=== PATIENT | male | born 1950 | race Caucasian/White ===

== ENCOUNTER 2019-04-24 06:47 | Inpatient (IN) | payer OTHER, SELFPAY ==
[2019-04-10 09:57] VITALS: BMI 43.0
[2019-04-24] VITALS (15 sets, daily range): BP systolic 92–145; BP diastolic 51–87; PULSE 64–75; RESP 14–24; TEMP 35.6–36.9; O2SAT 95–98; BMI 42.5
--- NOTE | 2019-04-24 | DI.RAD.S_ITS ---
PROCEDURE: XR KNEE LT 1TO2V INDICATIONS: POST OP TECHNIQUE: 2 view(s) of the knee acquired. COMPARISON: SNO Outside Film, RG, KNEE 3VW (LT), 03/10/2017, 16:32. FINDINGS: Bones: Patient is status post knee joint arthroplasty. Hardware components are in expected positions. Visualized bony structures are intact. Soft tissues: Overlying postoperative changes are noted. IMPRESSION: Expected postsurgical change for left knee arthroplasty. Dictated by: Michelle Guerra MD, PhD on 04/24/2019 at 10:29 Approved by: Michelle Guerra MD, PhD on 04/24/2019 at 10:29
[2019-04-24] MEDS: CELECOXIB 200 MG CAPSULE PO (06:56)
[2019-04-24] MEDS: ACETAMINOPHEN 325 MG TABLET 975 MG PO ×3 (06:56→20:12)
[2019-04-24] MEDS: PREGABALIN 75 MG CAPSULE PO (06:56)
--- NOTE | 2019-04-24 07:29 | PM.PREOP ---
Pre-operative Note Interval Note History & Physical reviewed/Exam performed by Physician: Yes Changes to H&P: No
--- NOTE | 2019-04-24 07:41 | P.OP_ITS ---
Operative Date/Time/Diagnoses Date of procedure: 04/24/19 Time of procedure: 09:36 Pre-op diagnosis: Left knee osteoarthritis Post-op diagnosis: same Procedure & Clinicians Procedure: Left total knee arthroplasty Same procedure as scheduled: Yes Indications: The patient presents today for total knee arthroplasty after failure of conservative treatment. The nature of the procedure including the risks and benefits, alternatives, postoperative course and expected outcome were discussed and all questions answered. Consent was obtained. Operative site confirmed and marked. Surgeon: Lloyd Seymour Shipping Clerk/Admin: Eamon Bateman Anesthesia Type: General, Spinal, Peripheral nerve block and Local Operative Notes Findings: Severe osteoarthritis with varus alignment. Closure Type: primary Specimen(s): none sent Prosthetic devices, grafts, tissues, transplants, or devices: [employer] BCS: [xx] femoral component, [xx] tibial component, [xx] mm BCS polyethylene tray and [xx] mm round patella Applied: implant(s) Estimated Blood Loss (mL): 20 Blood products transfused: none Tourniquet time (min): 60 Procedure in detail: The patient was taken to the operative suite and placed under general and spinal anesthesia with an adductor nerve block. The patient was given prophylactic antibiotics prior to surgery. The patient was also given tranexamic acid, 1 g, just prior to surgery for postoperative hemostasis. The lateral knee was prepped and the joint injected with 20 mL of 1% Lidocaine with epinephrine. The knee was then prepped and draped in usual sterile fashion. The leg was exsanguinated with an Esmarch dressing and the tourniquet raised to 300 torr. A 15 cm anterior incision was made. Next a medial trivector arthrotomy was made. The extensor mechanism was marked to ensure accurate repair. Initial exposing dissection was carried out medially and laterally. The knee was then extended and the patellar thickness was measured and a cut made removing approximately 9 mm of bone. The patella was then sized and drilled. Some excess lateral bone was excised and the patellofemoral ligament released. The knee was then flexed and the intramedullary femoral guide mitch placed. The distal femoral cut was made in 6 ? of valgus at the +2 position. The femoral size was measured and the appropriate cutting block was then placed and the anterior, posterior and chamfer cuts made. The extra medullary tibial alignment mitch was then placed along the anatomic axis of the tibia approximating the normal slope. The guide was set to remove approximately 10 mm from the less affected lateral side. The proximal tibial cut was then made with an oscillating saw. All meniscus and bony debris was then removed. Flexion extension gaps were checked. No specific balancing was required other than routine removal of osteophytes. The soft tissues were then injected with a combination of 20 mL of half percent Marcaine with epinephrine and 20 mL of Exparel. The trial components were then placed. The knee went into full extension and flexion beyond 120?. There was excellent medial- lateral balance throughout motion with just slight increased lateral laxity in flexion and extension. Patellar tracking was excellent. The trial components were removed and the knee was cleansed with Pulsavac irrigation and dried. The final components were cemented in with high viscosity vacuum mixed bone cement with antibiotics. The knee was held in extension and the patellar clamp until the cement had adequately cured. The knee was ir rigated and inspected for any further debris. The knee was then irrigated with dilute Betadine solution. The extensor mechanism was closed with 5 interrupted #1 Vicryl sutures in 90 degrees of flexion. The joint was then injected with a combination of 1 g of tranexamic acid and 20 mL of quarter percent Marcaine with epinephrine. The subcutaneous tissue was closed with 2-0 Vicryl. The skin was closed with heriberto and surgical adhesive. An Aquacell dressing and Mathew wrap were then applied. The patient tolerated the procedure well and was returned to recovery room in good condition. Complications: none Post-operative Condition: stable Disposition: PACU Plan for aftercare: [facility] protocol for total knee arthroplasty.
[2019-04-24] MEDS: MIDAZOLAM 2 MG/2 ML VIAL IV (07:42)
[2019-04-24] MEDS: fentaNYL 100 MCG/2 ML INJ 50 MCG IV (07:44)
[2019-04-24] MEDS: LACTATED RINGERS 1,000 ML 42 ML IV ×2 (07:56→09:21)
--- NOTE | 2019-04-24 07:59 | SUR.PREOP ---
Pt set up for block, medicated. Dr. Lundberg unable to complete block.
[2019-04-24] MEDS: CEFAZOLIN 2 GM/100 ML FROZ.PIGGY IV (08:00)
--- NOTE | 2019-04-24 08:39 | SUR.OPER ---
Supine on padded OR bed. Pillow under head, arms secured on padded armboards <90 degree abduction. Safety belt across torso. Non-operative leg secured with tape over blanket over lower leg. Operative leg secured in Alex positioner. Foam padded brace at thigh of operative leg.
[2019-04-24] MEDS: BUPIVACAINE 0.25% W/ EPI (PF) 20 ML, TRANEXAMIC ACID 1,000 MG, SODIUM CHLORIDE 0.9% 10 ML INJ (08:43)
[2019-04-24] MEDS: TRANEXAMIC ACID 1,000 MG VIAL 1000 MG INJ (08:45)
[2019-04-24] MEDS: BUPIVACAINE LIPOSOME 266 MG/20 ML VIAL INJ (08:47)
[2019-04-24] MEDS: BUPIVACAINE 0.25% W/ EPI 30 ML VIAL 60 ML INJ (08:48)
[2019-04-24] MEDS: SODIUM CHLORIDE IRRIG SOLUTION 250 ML, POVIDONE-IODINE SPONGE STICKS 1 APPLIC IRR (09:26)
[2019-04-24] MEDS: LACTATED RINGERS 1,000 ML 125 ML IV ×2 (10:45→20:12)
[2019-04-24] MEDS: SODIUM CHLORIDE 0.9% FLUSH 10 ML IV ×2 (10:45→11:48)
--- NOTE | 2019-04-24 11:16 | PC.NURSE ---
Addendum entered by Valarie Hernandez R.N. 04/24/19 16:06: Spoke with ELIEZER Thomas at 1520, cancelled discharge order as pt not ready to be discharged today. PT saw pt and not ready per PT, needs to do stair training and pt had Epidural/spinal during surgery, little void of 50mls this afternoon. Original Note: Day Shift- Report rec'd from MICHAEL Edwards in PACU at 1010. Pt arrived to unit at 1018 via bed into room 217, personal belongings brought into room, Pt's Dara also at bedside. Pt oriented to post op routines, call light, pain management plan, Epidural/Spinal precautions, sensation to void, urinal at bedside. LEft knee aquacel dressing CDI with dean wrap covering, PPP, pt states has numbness and tingling, aching to left knee incision 1-2/10. Pt able to perform ankle pump exercises and slightly bend at knee. Instructed a pillow may be placed under his leg but below his knee. On continuous O2 monitoring, O2 sat 96% on RA. Respirations are easy and regular. Bed alarm on, call light within reach.
[2019-04-24] MEDS: HYDROMORPHONE 0.5 MG INJ IV (11:44)
[2019-04-24] MEDS: OXYCODONE IR 5 MG TABLET 10 MG PO ×3 (12:33→20:13)
--- NOTE | 2019-04-24 15:27 | PT.IIE ---
Current Diagnoses Unilateral primary osteoarthritis, left knee (04/24/19) Surgery Performed Operation Date: 04/24/19 07:45 Actual Procedures p Total Knee Arthroplasty(Left) - Lloyd Seymour MD Surgical History (Last Updated 04/10/19 @ 10:16 by Dara Steele RN) Hx of bilateral cataract extraction (Acute ~01/2019) Hx of tonsillectomy (Acute) S/P lumbar fusion (Acute) Medical History (Last Updated 04/24/19 @ 06:48 by William Buck) Anemia (Acute) Arthritis (Acute) Bilateral knee pain (Acute) BPH (benign prostatic hyperplasia) (Acute) Chronic neck and back pain (Acute) Diabetic neuropathy (Acute) GERD (gastroesophageal reflux disease) (Acute) Hiatal hernia (Acute) HLD (hyperlipidemia) (Acute) Incontinence of urine (Acute) Osteoarthritis (Acute) Type 2 diabetes mellitus (Acute) Physical Therapy Inpatient Evaluation/Re-Eval M1 PT/OT-IP Prior Functional Status Start: 04/24/19 17:45 Freq: NEEDED Status: Active Protocol: Document 04/24/19 15:27 DLM (Rec: 04/24/19 17:56 DL [id number]) Medical Review Prior Functional Status Medical History Reviewed Yes Diet/Fluid Consistency Regular Communication WNL Mobility and Gait Independent gait with cane due to knee pain, gets winded when he walks very far Activities of Daily Living and IADL's Independent Social History Household Members spouse Living Arrangements House Number of Floors (Floors) One Floor Number of Stairs To Enter/Railing? 9-10 with bilateral rails, typically goes in with cane and one rail Home Environment Standard Height Toilet Home Equipment Front Wheel Walker,Straight Cane,Shower Seat without Backrest Employment Status Retired M2 PT-IP Current Condition Start: 04/24/19 17:45 Freq: NEEDED Status: Active Protocol: Document 04/24/19 15:27 DLM (Rec: 04/24/19 17:56 DL [id number]) Physical Therapy Current Condition Current Condition Evaluation Date 04/24/19 Treatment Diagnosis left TKA, impaired gait/ mobility Onset Date 04/24/19 Weight Bearing Status Weight Bearing Status Weight Bear as Tolerated M3 PT-IP Subjective Start: 04/24/19 17:45 Freq: NEEDED Status: Active Protocol: Document 04/24/19 15:27 DLM (Rec: 04/24/19 17:56 [facility] [id number]) Subjective Physical Therapy Visit Type Type Initial Evaluation Visit Start Time 15:00 Visit Stop Time 15:27 Total Visit Minutes 27 Number of INFORMATICS PHYSICIAN Visits 0 Physical Therapy Visit Comments Patient Comments He does not feel ready to go home today Patient Goals discharge home in 2-3 days Therapy Pain Assessment Pain When Pain Assessed After Treatment Pain Present Pain Present Pain Reported Location Left Knee Intensity 3 Scale Used Numeric (1 - 10) Description Aching Pain Behaviors Guarding Pain Management Techniques Apply Cold,Re-positioning M4 PT-IP Mobility and Gait Start: 04/24/19 17:45 Freq: NEEDED Status: Active Protocol: Document 04/24/19 15:27 DL (Rec: 04/24/19 17:56 [facility] [id number]) PT-Bed Mobility Assessment Supine to Sit Supine to Sit Standby Assistance,Bedrails Scooting Scooting to Edge of Bed Standby Assistance PT-Transfer Assessment Sit to and From Stand Sit to and from Stand Contact Guard Assistance, Minimal Assistance,Use of Upper Extremities Equipment Transfer Assistive Device Gait Belt,Front Wheeled Walker Transfers Transfer Destination Chair Transfer Technique Stand Step Pivot Transfer Ability Level of Assist Contact Guard Assistance,Use of Upper Extremities Comments Mobility Comments pt up to recliner with call light close and nursing aware Gait Assessment Gait Gait Assistance Required: Contact Guard Assist Distance (Feet) 12 Able to Maintain Weight Bearing Status Yes During Gait Assistive Devices Assistive Device Gait Belt,Front Wheeled Walker Gait Deviations General Gait Pattern Antalgic Factors Limiting Gait Function Factors Limiting Gait Function Decreased Activity Tolerance, Decreased Strength,Limited Range of Motion,Pain Comments Gait Comments shortness of breath with short distance of gait in his room PT-Balance Assessment Sitting Balance and Reactions Static Sitting Balance Ability Normal Dynamic Sitting Balance Ability Good Standing Balance and Reactions Static Standing Balance Ability Good Dynamic Standing Balance Ability Fair Device Used FWW M5 PT-IP Objective Assessments Start: 04/24/19 17:45 Freq: NEEDED Status: Active Protocol: Document 04/24/19 15:27 DLM (Rec: 04/24/19 17:56 [facility] [id number]) Orientation Orientation/Cognition Level of Alertness Alert Orientation Name,Age,Birthday,Month,Date, Year,Day of Week,Place, Situation Language Function Ability No Deficits Noted Safety Awareness Understands Safety Issues Memory Description No Deficits Noted Gross Range of Motion Upper Extremity ROM Assessment Within Functional Limits Lower Extremity ROM Assessment Left Impaired Impairments AROM knee 15-80 degrees Strength Upper Extremity Strength Assessment Within Functional Limits Lower Extremity Strength Assessment Left Impaired Hip difficulty lifting LE off bed Knee ext 3-/5 Ankle DF 5/5 Comments Strength Comments post-op pain left knee limits his strength Coordination Assessment Gross Coordination Gross Coordination WNL Sensation Assessment Sensation Gross Sensation Right LE Impaired,Left LE Impaired Sensation Description Numbness Comments Sensation Comments hx neuropathy Muscle Tone Muscle Tone WNL Yes M6 PT-IP Treatment Start: 04/24/19 17:45 Freq: NEEDED Status: Active Protocol: Document 04/24/19 15:27 DLM (Rec: 04/24/19 17:56 DL [id number]) Physical Therapy Treatment Exercises Exercises Ankle Pumps,Quad Sets Education Education Provided Weight Bearing Status,Post-Op Packet,Safety Other Treatments Other Treatment Performed reviewed all the exercises in post-op packet M7 PT-IP Assessment and Plan Start: 04/24/19 17:45 Freq: NEEDED Status: Active Protocol: Document 04/24/19 15:27 DLM (Rec: 04/24/19 17:56 [facility] [id number]) PT Summary Assessment and Plan Potential Rehabilitation Potential Good Status of Condition at Evaluation Evolving Summary Impairments Pain,ROM,Strength,Balance, Sensation,Bed Mobility, Transfers,Gait,Activity Tolerance Assessment Summary Auther is alert and showed good effort with therapy. No nausea and no light-headedness when up. He fatigues quickly today with light activity with shortness of breath. Pt left up in recliner. Pt does not feel ready for discharge today . He will need to be able to go up 9-10 steps to get into his house. Anticipate he will need extra time to increase his activity tolerance for discharge home. He reports he has a to assist him at home. Goals Bed Mobility Goal Independent Transfer Goal Independent,Front Wheeled Walker Gait Goal Independent,Front Wheel Walker Gait Distance 150 feet Other Goals Up and down 9 steps with rail and cane and SBA. Days to Meet Goals 3 Frequency of Treatment Frequency Of Treatment Twice a Day Treatment Plan Physical Therapy Treatment Plan Bed Mobility Training,Transfer Training,Gait Training, Therapeutic Exercise,Post Op Education,Discharge Planning, Hot or Cold Pack Recommendations To Nursing Amount of Assist Needed 1 Person Assist Discharge Recommendations PT Discharge Recommendations Home with Assistance, Outpatient PT
[2019-04-24] MEDS: CEFAZOLIN VIAL 3 GM in SODIUM CHLORIDE 0.9% 100 ML 200 ML IV (17:16)
[2019-04-24] MEDS: TAMSULOSIN 0.4 MG CAPSULE PO (20:13)
[2019-04-24] MEDS: ATORVASTATIN 10 MG TABLET PO (20:13)
[2019-04-24] MEDS: ASPIRIN EC 81 MG TABLET PO (20:13)
[2019-04-25] MEDS: CEFAZOLIN VIAL 3 GM in SODIUM CHLORIDE 0.9% 100 ML 200 ML IV (00:15)
[2019-04-25] MEDS: OXYCODONE IR 5 MG TABLET 10 MG PO ×7 (00:19→20:51)
[2019-04-25 03:22] VITALS: BP 126/63; PULSE 80; RESP 18; TEMP 36.8; O2SAT 98
[2019-04-25 05:52] LABS: Hematocrit 35.4 % (41-53); Hemoglobin 12.5 g/dL (13.5-17.5)
[2019-04-25] MEDS: ACETAMINOPHEN 325 MG TABLET 975 MG PO ×3 (07:36→20:49)
[2019-04-25] MEDS: ASPIRIN EC 81 MG TABLET PO (07:36)
[2019-04-25] MEDS: METFORMIN HCL 500 MG TABLET 1000 MG PO (07:36)
[2019-04-25] MEDS: MELOXICAM 7.5 MG TABLET 15 MG PO (07:39)
--- NOTE | 2019-04-25 07:54 | PC.NURSE ---
Addendum entered by Valarie Hernandez R.N. 04/25/19 11:32: Spoke with ELIEZER Duque on unit at 0910, request to change scheduled pantoprazole to AM and for bowel regime medications while pt on narcotics. New orders rec'd in [employer]. At 1050, pain 3/10, better than this AM, Oxycodone effective. 1PA using walker and gait belt to recliner chair. Ice pack intermittently repositioned to left knee. Small amount of drainage shadowing to distal end of dressing marked with pen. Original Note: Day Shift- Pt A&OX4, rating 3+ pain to left knee radiating to lower thigh. Pt wincing and facial grimacing, guarding to left knee and thigh. PRN Oxycodone given at 0735, dean wrap removed and LLE repositioned off a pillow onto bed per pt request. Denies nausea, shortness of breath, chest pain or pressure. Left knee aquacel dressing CDI, CMS+, dorsal pulse palpable and marked with pen from 04/24. Calf SCD's on BLE. edema 1+ to BLE and edema surrounding left knee incision. Pt c/o GERD requesting med, not scheduled until 2099, plan to ask Surgery team to give dose now. Noother voiced concerns. Bed alarm on, call light within reach.
[2019-04-25 08:00] VITALS: BP 132/61; PULSE 79; RESP 17; TEMP 37.3; O2SAT 95
[2019-04-25 08:47] VITALS: PULSE 80; RESP 16; O2SAT 98
--- NOTE | 2019-04-25 09:10 | PM.PNPO.1 ---
Subjective Subjective Date Patient Seen: 04/25/19 Time Patient Seen: 09:10 Interval history: Hospital day 2, postop day 1 following left total knee arthroplasty by Dr. Seymour. Patient having increased pain this morning. He states his nerve block has worn off. He has not had physical therapy yet. He is taking oxycodone 10 mg and Dilaudid IV for breakthrough pain. Lab this morning is good. He is scheduled to go to [facility] in [place]. Exam Vital Signs (past 8 hours): - 04/25/19 03:22 04/25/19 08:47 Temperature 98.2 F Pulse Rate 80 80 Respiratory Rate 18 16 Blood Pressure 126/63 Pulse Oximetry 98 98 Fraction of Inspired Oxygen 21 Oxygen Delivery Method Room Air Oxygen Flow Rate 0 Narrative Exam Narrative: Alert, oriented in no acute distress lying in bed. Legs. Aquacel dressing to left knee is dry without drainage or inflammation. No calf pain or swelling. Pulses symmetrical. Objective Labs Result Diagrams: 04/25/19 05:33 Labs: Laboratory Results - last 24 hr 04/25/19 05:33 Hgb 12.5 L Hct 35.4 L Assessment & Plan Post-op Postoperative Procedures: Procedures Operation Date: 04/24/19 07:45 Actual Procedures Side Surgeon p Total Knee Arthroplasty Left Lloyd Seymour MD Plan: Will have patient work with PT more today to improved function. He does have several stairs at home. Anticipate discharge home tomorrow if he is stable and passes PT. He does have prescription for oxycodone at home. He is scheduled for [facility] in [place]. Quality VTE Deep Vein Thrombosis/Pulmonary Embolism Present on Admission: No
[2019-04-25] MEDS: SENNOSIDES 8.6 MG TABLET PO ×2 (09:44→20:50)
[2019-04-25] MEDS: DOCUSATE 100 MG CAPSULE PO ×2 (09:44→20:50)
[2019-04-25] MEDS: PANTOPRAZOLE 20 MG TABLET PO (09:45)
[2019-04-25] MEDS: SODIUM CHLORIDE 0.9% FLUSH 10 ML IV ×2 (09:45→20:50)
--- NOTE | 2019-04-25 10:40 | PT.IPTN ---
Current Diagnoses Unilateral primary osteoarthritis, left knee (04/24/19) Surgery Performed Operation Date: 04/24/19 07:45 Actual Procedures p Total Knee Arthroplasty(Left) - Lloyd Seymour MD Physical Therapy Treatment Note M2 PT-IP Current Condition Start: 04/24/19 17:45 Freq: NEEDED Status: Active Protocol: Document 04/25/19 10:40 DLM (Rec: 04/25/19 10:53 DLM [id number]) Physical Therapy Current Condition Current Condition Evaluation Date 04/25/19 Treatment Diagnosis left TKA, impaired gait/ mobility Onset Date 04/24/19 Weight Bearing Status Weight Bearing Status Weight Bear as Tolerated M3 PT-IP Subjective Start: 04/24/19 17:45 Freq: NEEDED Status: Active Protocol: Document 04/25/19 10:40 DLM (Rec: 04/25/19 10:53 DLM [id number]) Subjective Physical Therapy Visit Type Type Treatment Note Visit Start Time 10:10 Visit Stop Time 10:40 Total Visit Minutes 30 Number of GLASS SELECTOR Visits 0 Physical Therapy Visit Comments Patient Comments He is worried about being able to do stairs Therapy Pain Assessment Pain When Pain Assessed After Treatment Pain Present Pain Present Pain Reported Location Left Knee Intensity 3 Scale Used Numeric (1 - 10) Description Aching Pain Behaviors Guarding Pain Management Techniques Apply Cold,Re-positioning M4 PT-IP Mobility and Gait Start: 04/24/19 17:45 Freq: NEEDED Status: Active Protocol: Document 04/25/19 10:40 DLM (Rec: 04/25/19 10:53 DLM [id number]) PT-Bed Mobility Assessment Scooting Scooting to Edge of Bed Standby Assistance PT-Transfer Assessment Sit to and From Stand Sit to and from Stand Contact Guard Assistance, Minimal Assistance,Use of Upper Extremities Equipment Transfer Assistive Device Gait Belt,Front Wheeled Walker Transfers Transfer Destination Chair Transfer Technique Stand Step Pivot Transfer Ability Level of Assist Contact Guard Assistance,Use of Upper Extremities Comments Mobility Comments pt left up in recliner with ice on knee and call light close Gait Assessment Gait Gait Assistance Required: Contact Guard Assist Distance (Feet) 50 Able to Maintain Weight Bearing Status Yes During Gait Assistive Devices Assistive Device Gait Belt,Front Wheeled Walker Gait Deviations General Gait Pattern Antalgic Factors Limiting Gait Function Factors Limiting Gait Function Decreased Activity Tolerance, Decreased Strength,Limited Range of Motion,Pain Comments Gait Comments pt using a lot of effort for gait PT-Balance Assessment Sitting Balance and Reactions Static Sitting Balance Ability Normal Dynamic Sitting Balance Ability Good Standing Balance and Reactions Static Standing Balance Ability Good Dynamic Standing Balance Ability Fair Device Used FWW M5 PT-IP Objective Assessments Start: 04/24/19 17:45 Freq: NEEDED Status: Active Protocol: Document 04/25/19 10:40 DLM (Rec: 04/25/19 10:53 DLM [id number]) Orientation Orientation/Cognition Level of Alertness Alert Orientation Name,Age,Birthday,Month,Date, Year,Day of Week,Place, Situation Language Function Ability No Deficits Noted Safety Awareness Understands Safety Issues Memory Description No Deficits Noted M6 PT-IP Treatment Start: 04/24/19 17:45 Freq: NEEDED Status: Active Protocol: Document 04/25/19 10:40 DLM (Rec: 04/25/19 10:53 DLM [id number]) Physical Therapy Treatment Exercises Exercises Ankle Pumps,Quad Sets,Heel Slides,Straight Leg Raises, Short Arc Quads,Passive Knee Extension Hang,Seated Knee Flexion/Extension Education Education Provided Weight Bearing Status,Post-Op Packet,Safety Other Treatments Other Treatment Performed reviewed all the exercises in post-op packet M7 PT-IP Assessment and Plan Start: 04/24/19 17:45 Freq: NEEDED Status: Active Protocol: Document 04/25/19 10:40 DLM (Rec: 04/25/19 10:53 DLM [id number]) PT Summary Assessment and Plan Summary Impairments Pain,ROM,Strength,Balance, Sensation,Bed Mobility, Transfers,Gait,Activity Tolerance Progress Towards Goals Slow Progress due to Activity Tolerance Assessment Summary Art continues to slowly progress this visit. He increased his distance of gait . He continues to fatigue easily with activity. Will plan to start stair training this afternoon. Continue to work toward discharge home with his to assist. He has to be able to get up 9-10 steps to get into the house. Goals Bed Mobility Goal Independent Transfer Goal Independent,Front Wheeled Walker Gait Goal Independent,Front Wheel Walker Gait Distance 150 feet Other Goals Up and down 9 steps with rail and cane and SBA. Days to Meet Goals 3 Frequency of Treatment Frequency Of Treatment Twice a Day Treatment Plan Physical Therapy Treatment Plan Bed Mobility Training,Transfer Training,Gait Training, Therapeutic Exercise,Post Op Education,Discharge Planning, Hot or Cold Pack Recommendations To Nursing Amount of Assist Needed 1 Person Assist Discharge Recommendations PT Discharge Recommendations Home with Assistance, Outpatient PT
[2019-04-25 12:33] VITALS: BP 121/77; PULSE 81; RESP 16; TEMP 37.1; O2SAT 95
--- NOTE | 2019-04-25 13:01 | CM.IDA ---
Initial DCP Assessment Note: Pt is a 68 yo male, resident of [place], now POD#1 from left uni knee w/ Dr Seymour PCP: Giuliana Arroyo Payer: [employer]ART Reviewed chart, pt discussed in multidisciplinary rounds this morning. Therapy has worked w/pt and anticipates home w/spouse tomorrow, pt needs to clear stair training. Pt has planned for home, Ortho team anticipates placing DC order tomorrow, Monday w/outpt PT for f/u. No needs expected from DC planning team although will remain available in case this changes today. BRITNEY Minor Discharge Planning/Care Management CM Discharge Assessment Start: 04/25/19 12:57 Freq: Status: Active Protocol: Document 04/25/19 12:58 MINNIE (Rec: 04/25/19 13:01 MINNIE [id number]) Discharge Planning Assessment Assigned Chief Operator Reformer BRITNEY Xie DPOA/Assigned Designee Name Dara () Contact Information [phone] or [phone] Advance Directives? Yes Advance Directives on File No History Provided By Patient,Significant Other, Medical Record Prior Living Arrangements House Household Members spouse Type of transporation used prior to Drives own vehicle admit Independent with ADL's Yes Is patient alert and oriented? Yes Barriers to Discharge No Discharge Plan Home Transportation Arrangement Spouse Referrals Initiated None needed Review Status In Process
--- NOTE | 2019-04-25 15:21 | PT.IPTN ---
Current Diagnoses Unilateral primary osteoarthritis, left knee (04/24/19) Surgery Performed Operation Date: 04/24/19 07:45 Actual Procedures p Total Knee Arthroplasty(Left) - Lloyd Seymour MD Physical Therapy Treatment Note M2 PT-IP Current Condition Start: 04/24/19 17:45 Freq: NEEDED Status: Active Protocol: Document 04/25/19 10:40 DLM (Rec: 04/25/19 10:53 DLM [id number]) Physical Therapy Current Condition Current Condition Evaluation Date 04/25/19 Treatment Diagnosis left TKA, impaired gait/ mobility Onset Date 04/24/19 Weight Bearing Status Weight Bearing Status Weight Bear as Tolerated M3 PT-IP Subjective Start: 04/24/19 17:45 Freq: NEEDED Status: Active Protocol: Document 04/25/19 15:21 DLM (Rec: 04/25/19 17:08 DLM [email or web address]) Subjective Physical Therapy Visit Type Type Treatment Note Visit Start Time 14:40 Visit Stop Time 15:21 Total Visit Minutes 41 Number of ASSISTANT CENTER MANAGER Visits 0 Physical Therapy Visit Comments Patient Comments He feels he is getting better, agrees he will probably be ready to go home tomorrow. Therapy Pain Assessment Pain When Pain Assessed After Treatment Pain Present Pain Present Pain Reported Location Left Knee Intensity 3 Scale Used Numeric (1 - 10) Description Aching Pain Behaviors Guarding Pain Management Techniques Apply Cold,Re-positioning M4 PT-IP Mobility and Gait Start: 04/24/19 17:45 Freq: NEEDED Status: Active Protocol: Document 04/25/19 15:21 DLM (Rec: 04/25/19 17:08 DLM [id number]) PT-Transfer Assessment Sit to and From Stand Sit to and from Stand Contact Guard Assistance,Use of Upper Extremities Equipment Transfer Assistive Device Gait Belt,Front Wheeled Walker Transfers Transfer Destination Chair Transfer Technique Stand Step Pivot Transfer Ability Level of Assist Contact Guard Assistance,Use of Upper Extremities Comments Mobility Comments pt left up in recliner with ice on knee and call light close Gait Assessment Gait Gait Assistance Required: Standby Assistance,Contact Guard Assist Distance (Feet) 70 Assistive Devices Assistive Device Gait Belt,Front Wheeled Walker Gait Deviations General Gait Pattern Antalgic Factors Limiting Gait Function Factors Limiting Gait Function Decreased Activity Tolerance, Decreased Strength,Limited Range of Motion,Pain Comments Gait Comments improved quality of gait, tends to roll up on toes of left LE during stance phase of gait, provided v.c to keep foot flat Stair Climbing Assessment Evaluation Level of Assist On Stairs Contact Guard Assistance Devices Stair Climbing Assistive Devices Tripod Cane/Hurry Cane,Left Railing Technique/Endurance Stair Climbing Direction Ascend and Descend Stair Climbing Technique Step to Step Number of Steps Climbed 6 Stair Climbing Set # Repetitions (reps) 1 Comments Stair Climbing Comments took wheelchair to and from stairs this visit M5 PT-IP Objective Assessments Start: 04/24/19 17:45 Freq: NEEDED Status: Active Protocol: Document 04/25/19 10:40 DLM (Rec: 04/25/19 10:53 DLM [id number]) Orientation Orientation/Cognition Level of Alertness Alert Orientation Name,Age,Birthday,Month,Date, Year,Day of Week,Place, Situation Language Function Ability No Deficits Noted Safety Awareness Understands Safety Issues Memory Description No Deficits Noted M6 PT-IP Treatment Start: 04/24/19 17:45 Freq: NEEDED Status: Active Protocol: Document 04/25/19 15:21 DLM (Rec: 04/25/19 17:08 DLM [email or web address]) Physical Therapy Treatment Exercises Exercises Ankle Pumps,Quad Sets,Heel Slides,Straight Leg Raises, Short Arc Quads,Passive Knee Extension Hang,Seated Knee Flexion/Extension Education Education Provided Weight Bearing Status,Post-Op Packet,Safety Other Treatments Other Treatment Performed reviewed all the exercises in post-op packet M7 PT-IP Assessment and Plan Start: 04/24/19 17:45 Freq: NEEDED Status: Active Protocol: Document 04/25/19 15:21 DLM (Rec: 04/25/19 17:08 DLM [email or web address]) PT Summary Assessment and Plan Summary Impairments Pain,ROM,Strength,Balance, Sensation,Bed Mobility, Transfers,Gait,Activity Tolerance Progress Towards Goals Progressing Toward Goals Assessment Summary He shows good progress this afternoon with his gait and ability to do stairs. Noted increased drainage on dressing at the end of this visit which was reported to his nurse. Anticipate he will be able to discharge home tomorrow if he continues to progress well. Goals Bed Mobility Goal Independent Transfer Goal Independent,Front Wheeled Walker Gait Goal Independent,Front Wheel Walker Gait Distance 150 feet Other Goals Up and down 9 steps with rail and cane and SBA. Days to Meet Goals 3 Frequency of Treatment Frequency Of Treatment Twice a Day Treatment Plan Physical Therapy Treatment Plan Bed Mobility Training,Transfer Training,Gait Training, Therapeutic Exercise,Post Op Education,Discharge Planning, Hot or Cold Pack Recommendations To Nursing Amount of Assist Needed 1 Person Assist Discharge Recommendations PT Discharge Recommendations Home with Assistance, Outpatient PT
[2019-04-25 16:08] VITALS: BP 122/61; PULSE 76; RESP 17; TEMP 36.6; O2SAT 96
[2019-04-25 19:51] VITALS: BP 120/68; PULSE 77; RESP 17; TEMP 36.4; O2SAT 97
[2019-04-25] MEDS: ATORVASTATIN 10 MG TABLET PO (20:50)
[2019-04-25] MEDS: TAMSULOSIN 0.4 MG CAPSULE PO (20:51)
[2019-04-26 00:30] VITALS: BP 130/69; PULSE 76; RESP 19; TEMP 36.9; O2SAT 96
[2019-04-26] MEDS: OXYCODONE IR 5 MG TABLET 10 MG PO ×3 (00:38→13:45)
--- NOTE | 2019-04-26 01:11 | PC.NURSE ---
Addendum entered by Jennifer Nuñez R.N. 04/26/19 05:48: Awake for several hours but now asleep. SCD's are on. Original Note: Patient is alert and oriented. Breath sounds CTA with RA sat of 96%. HRR. Denies nausea. BT present and is passing flatus. Chronic urinary frequency but denies dysuria or urgency; using urinal. Is able to move self in bed. Gets out of bed with walker and 1 assist; still with weakness in left LE. Dressing to left knee intact with quarter size sanguinous drainage noted and outlined. Complained of 6/10 knee/thigh pain and was medicated with Oxycodone and ice pack applied. Chronic neuropathy bilateral LE to knee and bilateral forearms. Good PP/cap refill. Left LE is noted to be erythemic and warm to touch. Non pitting edema present in bilateral LE. Wearing bilateral SCD's. Fall risk score is high and bed alarm is activated.
[2019-04-26 04:11] VITALS: BP 126/63; PULSE 68; RESP 19; TEMP 36.5; O2SAT 96
[2019-04-26 08:00] VITALS: BP 133/73; PULSE 79; RESP 18; TEMP 36.4; O2SAT 97
[2019-04-26] MEDS: ACETAMINOPHEN 325 MG TABLET 975 MG PO (08:11)
[2019-04-26] MEDS: METFORMIN HCL 500 MG TABLET 1000 MG PO (08:11)
[2019-04-26] MEDS: PANTOPRAZOLE 20 MG TABLET PO (08:11)
[2019-04-26] MEDS: SENNOSIDES 8.6 MG TABLET PO (08:11)
[2019-04-26] MEDS: ASPIRIN EC 81 MG TABLET PO (08:11)
[2019-04-26] MEDS: DOCUSATE 100 MG CAPSULE PO (08:11)
[2019-04-26] MEDS: MELOXICAM 7.5 MG TABLET 15 MG PO (08:11)
[2019-04-26] MEDS: SODIUM CHLORIDE 0.9% FLUSH 10 ML IV (08:12)
--- NOTE | 2019-04-26 09:12 | PT.IPTN ---
Current Diagnoses Unilateral primary osteoarthritis, left knee (04/24/19) Surgery Performed Operation Date: 04/24/19 07:45 Actual Procedures p Total Knee Arthroplasty(Left) - Lloyd Seymour MD Physical Therapy Treatment Note M2 PT-IP Current Condition Start: 04/24/19 17:45 Freq: NEEDED Status: Active Protocol: Document 04/25/19 10:40 DLM (Rec: 04/25/19 10:53 DLM [id number]) Physical Therapy Current Condition Current Condition Evaluation Date 04/25/19 Treatment Diagnosis left TKA, impaired gait/ mobility Onset Date 04/24/19 Weight Bearing Status Weight Bearing Status Weight Bear as Tolerated M3 PT-IP Subjective Start: 04/24/19 17:45 Freq: NEEDED Status: Active Protocol: Document 04/26/19 09:12 DLM (Rec: 04/26/19 10:07 DLM [id number]) Subjective Physical Therapy Visit Type Type Treatment Note Visit Start Time 08:45 Visit Stop Time 09:12 Total Visit Minutes 27 Number of BUCKLE ATTACHING MACHINE OPERATOR Visits 0 Physical Therapy Visit Comments Patient Comments He feels like he is ok to go home today. Therapy Pain Assessment Pain When Pain Assessed During Mobility Pain Present Pain Present Pain Reported Location Left Knee Intensity 5 Scale Used Numeric (1 - 10) Description Aching Pain Behaviors Facial Grimacing,Guarding Pain Management Techniques Apply Cold,Re-positioning M4 PT-IP Mobility and Gait Start: 04/24/19 17:45 Freq: NEEDED Status: Active Protocol: Document 04/26/19 09:12 DLM (Rec: 04/26/19 10:07 DLM [id number]) PT-Bed Mobility Assessment Supine to Sit Supine to Sit Independent,Head of Bed Elevated Sit to Supine Sit to Supine Minimal Assistance Scooting Scooting to Edge of Bed Independent PT-Transfer Assessment Sit to and From Stand Sit to and from Stand Standby Assistance,Use of Upper Extremities Equipment Transfer Assistive Device Gait Belt,Front Wheeled Walker Transfers Transfer Destination Chair Transfer Technique Stand Step Pivot Transfer Ability Level of Assist Standby Assistance,Use of Upper Extremities Comments Mobility Comments Pt left up in recliner at the end of this visit with feet elevated, call light close and ice on his knee. Pt continues to show area of drainage from left knee incision on dressing at distal end of incision. Drainage currently contained by his dressing. Gait Assessment Gait Gait Assistance Required: Standby Assistance Distance (Feet) 70 Able to Maintain Weight Bearing Status Yes During Gait Assistive Devices Assistive Device Gait Belt,Front Wheeled Walker Gait Deviations General Gait Pattern Antalgic Factors Limiting Gait Function Factors Limiting Gait Function Decreased Activity Tolerance, Decreased Strength,Limited Range of Motion,Pain Comments Gait Comments pt tends to roll forward onto toes instead of staying flat on left foot during stance phase of gait, verbal cuing provided to pt to improve gait pattern Stair Climbing Assessment Comments Stair Climbing Comments pt does not feel he needs to do stairs again today, did well yesterday and he feels he will be ok at home M5 PT-IP Objective Assessments Start: 04/24/19 17:45 Freq: NEEDED Status: Active Protocol: Document 04/25/19 10:40 DLM (Rec: 04/25/19 10:53 DLM [id number]) Orientation Orientation/Cognition Level of Alertness Alert Orientation Name,Age,Birthday,Month,Date, Year,Day of Week,Place, Situation Language Function Ability No Deficits Noted Safety Awareness Understands Safety Issues Memory Description No Deficits Noted M6 PT-IP Treatment Start: 04/24/19 17:45 Freq: NEEDED Status: Active Protocol: Document 04/26/19 09:12 DLM (Rec: 04/26/19 10:07 DLM [id number]) Physical Therapy Treatment Exercises Exercises Ankle Pumps,Quad Sets,Heel Slides,Straight Leg Raises, Short Arc Quads,Passive Knee Extension Hang,Seated Knee Flexion/Extension Education Education Provided Weight Bearing Status,Post-Op Packet,Safety Equipment Issued Equipment Type and Company pt has FWW and cane from home in his room M7 PT-IP Assessment and Plan Start: 04/24/19 17:45 Freq: NEEDED Status: Active Protocol: Document 04/26/19 09:12 DLM (Rec: 04/26/19 10:10 DL [id number]) PT Summary Assessment and Plan Summary Impairments Pain,ROM,Strength,Balance, Sensation,Bed Mobility, Transfers,Gait,Activity Tolerance Progress Towards Goals Progressing Toward Goals Assessment Summary He continues to slowly progress with his mobility and gait.He reports increased knee soreness today compared to yesterday's therapy. Pt feels ready to discharge home with assist from his . He has out-pt PT planned. His friend will be coming to pick him up at discharge and will assist him into the house. He appears safe to discharge home when medically cleared. Goals Bed Mobility Goal Independent Transfer Goal Independent,Front Wheeled Walker Gait Goal Independent,Front Wheel Walker Gait Distance 150 feet Other Goals Up and down 9 steps with rail and cane and SBA. Days to Meet Goals 3 Frequency of Treatment Frequency Of Treatment Twice a Day Treatment Plan Physical Therapy Treatment Plan Bed Mobility Training,Transfer Training,Gait Training, Therapeutic Exercise,Post Op Education,Discharge Planning, Hot or Cold Pack Recommendations To Nursing Amount of Assist Needed 1 Person Assist Discharge Recommendations PT Discharge Recommendations Home with Assistance, Outpatient PT
--- NOTE | 2019-04-26 09:48 | P.DS_ITS ---
History of Present Illness History of Present Illness Date Patient Seen: 04/26/19 Time Patient Seen: 09:48 Chief complaint: [id number] Narrative: Please see HPI previously recorded in chart. Discharge Providers Provider Date of admission: 04/24/19 06:47 Discharge Date: 04/26/19 Consults: 04/24/19 10:24 Consult to Discharge Planning Routine Comment: Consult to Physical Therapy Evaluate & Treat Comment: Physician Instructions: postop TKA protocol Consult to Respiratory Therapy Evaluate & Treat Comment: Physician Instructions: Evaluate and treat Discharge provider: Connie Matthews PA-C Summary Hospital Course Discharge Diagnosis: s/p left total knee replacement Hospital Course: The patient presents today for total knee arthroplasty after failure of conservative treatment. The nature of the procedure including the risks and benefits, alternatives, postoperative course and expected outcome were discussed and all questions answered. Consent was obtained. Operative site confirmed and marked. AFterwards patient was taken to the operating room where he underwent a left total knee replacement with Dr. Seymour which he tolerated well without complications. He has mobilized well with physical therapy. Pain is well controlled with Oxycodone. He is voiding independently and tolerating a diet. His will be primary caregiver at home. He has good supply of all post op home medications. He is medically stable for discharge today. Status at Discharge Cognitive/behavioral status at discharge: oriented Functional status at discharge: uses cane/walker Overall status at discharge: patient is progressing back to baseline Exam Vital Signs (past 8 hours): - 04/26/19 04:11 Temperature 97.7 F Pulse Rate 68 Respiratory Rate 19 Blood Pressure 126/63 Pulse Oximetry 96 Fraction of Inspired Oxygen 21 Oxygen Delivery Method Room Air Oxygen Flow Rate 0 Narrative Exam Narrative: 68 year old male resting comfortably in chair, alert and oriented in no acute distress. Dressing in place over left knee is CDI except area of shadow drainage at base of dressing extending from edge to edge. Mild to moderate swelling in distal extremity. Calves soft, compressible bilaterally. Pulses symmetric. Objective Labs Result Diagrams: 04/25/19 05:33 Discharge Plan Discharge Plan Patient Disposition: Home Discharge Med Rec/Prescriptions Prescriptions: New acetaminophen 325 mg Tablet 975 mg PO TID Qty: 60 RF: 0 aspirin 81 mg Tablet,Delayed Release (Dr/Ec) 81 mg PO BID Qty: 60 RF: 0 docusate sodium [DOK] 100 mg Capsule 100 mg PO BID Qty: 60 RF: 0 oxycodone 5 mg Tablet 10 mg PO Q4-6H PRN (Reason: Pain, Moderate (4-6)) Qty: 1 RF: 0 Continued metformin 500 mg Tablet 1,000 mg PO QAM RF: 0 atorvastatin 10 mg Tablet 10 mg PO BEDTIME RF: 0 tamsulosin 0.4 mg Capsule 0.4 mg PO BEDTIME RF: 0 ibuprofen 200 mg Tablet 400 mg PO Q6H PRN (Reason: Pain) RF: 0 omeprazole 20 mg Capsule,Delayed Release(Dr/Ec) 20 mg PO BEDTIME RF: 0 Follow up/Referrals: Lloyd Seymour MD [Physician] - (Please refer to [facility] Booklet for Postoperative Follow up appointments.) Provider Discharge Instructions Diet: Diet as Tolerated Activity: Weight bear as tolerated. Use walker/cane for support. Cold/Heat Therapy: Ice packs as needed. Other treatments: Refer to [facility] Guide. Skin/Wound/Dressing Care Report to your healthcare provider any signs of infection, such as:: chills, fever, night sweats, unusual drainage and unusual redness Dressing: Leave dressing in place, this will be removed at 2 week post operative visit. If it becomes saturate please call the office. Visit Report/Discharge Packet Instructions: DI for Knee Replacement, How to Prevent Falls, DI for Postope rative Pain, Oxycodone Quality VTE Deep Vein Thrombosis/Pulmonary Embolism Present on Admission: No
[2019-04-26 13:00] VITALS: BP 138/64; PULSE 79; RESP 16; TEMP 37.1; O2SAT 97
--- NOTE | 2019-04-26 13:48 | PC.NURSE ---
Pt dressed and ready for discharge home. HL removed. Dsg to left knee changed. Reviewed d/c information, s/s of infections, follow up and discharge medications.pt out via w/c by LEASE PICKER to pov with all belongings.
--- NOTE | 2019-04-26 17:59 | CM.DPNOTE ---
DC Note: DC home today w/spouse as expected. No barriers to safe return home/outpt PT. JW
== END 2019-04-26 13:50 | disposition home or self-care (01) | DRG 470 ==
PROVIDERS: Admitting Provider Orthopaedic Surgery; Visit Provider Orthopaedic Surgery
PROC: 0SRD0JZ Replacement of Left Knee Joint with Synthetic Substitute, Open Approach (ICD-10-PCS; CPT 27447; principal; 2019-04-24 07:45)
DX: M17.12 Unilateral primary osteoarthritis, left knee (principal); Z68.41 Body mass index [BMI] 40.0-44.9, adult; E11.42 Type 2 diabetes mellitus with diabetic polyneuropathy; E66.9 Obesity, unspecified
CPT/HCPCS: 36415; 73560; 82962; 85014; 85018; 94760; 94762; 97110; 97116; 97162; 97530; C1776; C9290; J0690; J1170; J2250; J2704; J3010

== ENCOUNTER 2019-08-07 11:06 | Inpatient (IN) | payer OTHER, SELFPAY ==
[2019-04-24 10:49] VITALS: BMI 42.5
[2019-07-31 12:25] VITALS: BMI 43.0
[2019-08-07] VITALS (11 sets, daily range): BP systolic 89–139; BP diastolic 55–74; PULSE 59–80; RESP 14–20; TEMP 36.1–36.7; O2SAT 95–99; BMI 42.8
--- NOTE | 2019-08-07 09:44 | DI.RAD.S_ITS ---
PROCEDURE: XR KNEE RT 1TO2V INDICATIONS: post op films TECHNIQUE: 2 view(s) of the knee acquired. COMPARISON: [facility], CR, XR KNEE LT 1TO2V, 04/24/2019, 10:01. FINDINGS: Bones: Patient is status post knee joint arthroplasty. Hardware components are in expected positions. Visualized bony structures are intact. Soft tissues: Overlying postoperative changes are noted. IMPRESSION: Normal alignment after right total knee arthroplasty. Dictated by: Abhay Downs M.D. on 08/07/2019 at 16:15 Approved by: Abhay Downs M.D. on 08/07/2019 at 16:16
--- NOTE | 2019-08-07 10:40 | PM.OP.1 ---
Operative Date/Time/Diagnoses Date of procedure: 08/07/19 Time of procedure: 15:19 Pre-op diagnosis: Right knee osteoarthritis Post-op diagnosis: same Procedure & Clinicians Procedure: Right total knee arthroplasty Same procedure as scheduled: Yes Indications: The patient presents today for total knee arthroplasty after failure of conservative treatment. The nature of the procedure including the risks and benefits, alternatives, postoperative course and expected outcome were discussed and all questions answered. Consent was obtained. Operative site confirmed and marked. Surgeon: Lloyd Seymour Rubber Vulcanizing Machine Operator: Eamon Bateman Anesthesia Type: Spinal, Peripheral nerve block and Local Operative Notes Findings: The patient has severe osteoarthritis with a significant varus deformity. He also had a moderate flexion contracture. A +2 femoral cut was made. The knee balanced well with just very slight increased tightness medially compared to laterally without specific releases beyond standard soft tissue approach and osteophyte removal. The knee easily went into full extension with excellent patellar tracking. Closure Type: primary Specimen(s): none sent Prosthetic devices, grafts, tissues, transplants, or devices: [employer] BCS: 7 femoral component, 5 tibial component, 9 mm BCS polyethylene tray and 32 x 9 mm round patella Applied: implant(s) Blood products transfused: none Tourniquet time (min): 62 Procedure in detail: The patient was taken to the operative suite and placed under spinal anesthesia with an adductor nerve block. The patient was given prophylactic antibiotics prior to surgery. The patient was also given tranexamic acid, 1 g, just prior to surgery for postoperative hemostasis. The lateral knee was prepped and the joint injected with 20 mL of 1% Lidocaine with epinephrine. The knee was then prepped and draped in usual sterile fashion. The leg was exsanguinated with an Esmarch dressing and the tourniquet raised to 300 torr. A 15 cm anterior incision was made. Next a medial trivector arthrotomy was made. The extensor mechanism was marked to ensure accurate repair. Initial exposing dissection was carried out medially and laterally. The knee was then flexed and the intramedullary femoral guide mitch placed. The distal femoral cut was made in 6 ? of valgus at the +2 position. The femoral size was measured and the appropriate cutting block was then placed and the anterior, posterior and chamfer cuts made. The intramedullary tibial alignment mitch was then placed. The guide was set to remove approximately 10 mm from the less affected lateral side. The proximal tibial cut was then made with an oscillating saw. All meniscus and bony debris was then removed. Posterior femoral osteophytes removed with a curved osteotome. Flexion extension gaps were checked. No specific balancing was required other than routine exposure and removal of osteophytes. The soft tissues were then injected with a combination of 20 mL of half percent Marcaine with epinephrine and 20 mL of Exparel. The trial components were then placed. The knee was then extended and the patellar thickness was measured and a cut made removing approximately 9 mm of bone. The patella was then sized and drilled. Some excess lateral bone was excised and the patellofemoral ligament released. The knee went into full extension and flexion beyond 120?. There was good medial-lateral balance throughout motion with just right increased tightness medially as opposed to laterally. Patellar tracking was excellent. The trial components were removed and the knee was cleansed with Pulsavac irrigation and dried. The final components were cemented with high viscosity vacuum mixed bone cement with antibiotics. The joint was filled with a dilute Betadine solution. The knee was held in extension and the patellar clamped until the cement was adequately cured. The knee was then irrigated. The extensor mechanism was closed with 5 interrupted #1 Vicryl sutures and a running Quill suture at approximately 90 degrees of flexion. The joint was then injected with a combination of 1 g of tranexamic acid and 20 mL of quarter percent Marcaine with epinephrine. The subcutaneous tissue was closed with 2 0 Vicryl. The skin was closed with heriberto and surgical adhesive. An Aquacel dressing and Mathew wrap were then applied. The patient tolerated the procedure well and was returned to recovery room in good condition. Complications: none Post-operative Condition: stable Disposition: PACU Plan for aftercare: [facility] protocol for total knee arthroplasty.
--- NOTE | 2019-08-07 12:02 | PM.PREOP ---
Pre-operative Note Interval Note History & Physical reviewed/Exam performed by Physician: Yes Changes to H&P: No
[2019-08-07] MEDS: LACTATED RINGERS 1,000 ML 42 ML IV ×2 (12:05→15:20)
[2019-08-07] MEDS: MELOXICAM 7.5 MG TABLET 15 MG PO (12:10)
[2019-08-07] MEDS: PREGABALIN 75 MG CAPSULE PO (12:10)
[2019-08-07] MEDS: ACETAMINOPHEN 325 MG TABLET 975 MG PO (12:26)
[2019-08-07] MEDS: CEFAZOLIN 2 GM/100 ML FROZ.PIGGY IV (14:00)
--- NOTE | 2019-08-07 14:20 | SUR.OPER ---
Supine on padded OR bed. Pillow under head, arms secured on padded armboards <90 degree abduction. Safety belt across torso. Non-operative leg secured with tape over blanket over lower leg. Operative leg secured in DeMayo/Alex positioner. Foam padded brace at thigh of operative leg.
[2019-08-07] MEDS: BUPIVACAINE 0.25% W/ EPI (PF) 20 ML, TRANEXAMIC ACID 1,000 MG, SODIUM CHLORIDE 0.9% 10 ML INJ (14:30)
[2019-08-07] MEDS: TRANEXAMIC ACID 1,000 MG VIAL 1000 MG INJ (14:30)
[2019-08-07] MEDS: BUPIVACAINE 0.25% W/ EPI (PF) 40 ML, BUPIVACAINE LIPOSOME 266 MG, SODIUM CHLORIDE 0.9% ... INJ (14:33)
[2019-08-07] MEDS: SODIUM CHLORIDE IRRIG SOLUTION 250 ML, POVIDONE-IODINE SPONGE STICKS 1 APPLIC IRR (14:34)
[2019-08-07] MEDS: LIDOCAINE 1% W/EPI 20 ML INJ (14:34)
[2019-08-07] MEDS: OXYCODONE IR 5 MG TABLET 10 MG PO ×2 (16:44→21:12)
[2019-08-07] MEDS: IBUPROFEN 400 MG TABLET PO ×2 (16:44→21:14)
[2019-08-07] MEDS: LACTATED RINGERS 1,000 ML 125 ML IV (16:45)
[2019-08-07] MEDS: HYDROMORPHONE 0.5 MG INJ IV ×2 (18:00→22:22)
[2019-08-07] MEDS: hydrOXYzine pamoate 25 MG CAPSULE PO (21:12)
[2019-08-07] MEDS: ACETAMINOPHEN 325 MG TABLET 650 MG PO (21:13)
[2019-08-07] MEDS: PANTOPRAZOLE 20 MG TABLET PO (21:14)
[2019-08-07] MEDS: ASPIRIN EC 81 MG TABLET PO (21:14)
[2019-08-07] MEDS: TAMSULOSIN 0.4 MG CAPSULE PO (21:14)
[2019-08-07] MEDS: ATORVASTATIN 10 MG TABLET PO (21:14)
--- NOTE | 2019-08-07 21:40 | PC.NURSE ---
Patient reports moderate pain to L knee; IV and PO pain meds administered and pain reassessed as mild; c/m/s to rle present; PPP; LS clear; O2 rA=95%; pt using urinal; possessions within reach; patient instructed regarding fall prevention and is using call light, as needed
[2019-08-07] MEDS: CEFAZOLIN VIAL 3 GM in SODIUM CHLORIDE 0.9% 100 ML 200 ML IV (22:50)
[2019-08-08] VITALS (7 sets, daily range): BP systolic 114–142; BP diastolic 63–82; PULSE 72–80; RESP 16–20; TEMP 36.7–38; O2SAT 93–95
[2019-08-08] MEDS: IBUPROFEN 400 MG TABLET PO ×4 (00:07→20:37)
[2019-08-08] MEDS: OXYCODONE IR 5 MG TABLET 10 MG PO ×3 (00:07→17:21)
[2019-08-08] MEDS: LACTATED RINGERS 1,000 ML 125 ML IV ×2 (00:09→10:12)
[2019-08-08] MEDS: ONDANSETRON 4 MG/2 ML INJ IV ×2 (04:45→09:04)
[2019-08-08] MEDS: CEFAZOLIN VIAL 3 GM in SODIUM CHLORIDE 0.9% 100 ML 200 ML IV (05:46)
[2019-08-08 06:43] LABS: Hematocrit 33.6 % (41-53); Hemoglobin 11.6 g/dL (13.5-17.5)
[2019-08-08] MEDS: hydrOXYzine pamoate 25 MG CAPSULE PO ×2 (08:10→14:32)
--- NOTE | 2019-08-08 09:11 | DI.RAD.S_ITS ---
PROCEDURE: XR CHEST 2V INDICATIONS: cough, decreased sat. TECHNIQUE: 2 views of the chest were acquired. COMPARISON: None. FINDINGS: Surgical changes and devices: None. Lungs and pleura: Increased opacification in the lung bases which could represent atelectasis or pneumonia. No pleural effusions or pneumothorax. Mediastinum: Mediastinal contours are normal. Heart size is normal. Moderate-sized hiatal hernia Bones and chest wall: No suspicious bony abnormalities. Soft tissues appear unremarkable. IMPRESSION: Increased bibasilar opacification compatible with atelectasis versus pneumonia. Dictated by: Michelle Guerra MD, PhD on 08/08/2019 at 10:00 Approved by: Michelle Guerra MD, PhD on 08/08/2019 at 10:01
[2019-08-08] MEDS: METFORMIN HCL 500 MG TABLET 1000 MG PO (10:30)
[2019-08-08] MEDS: ACETAMINOPHEN 325 MG TABLET 650 MG PO ×3 (10:30→20:36)
[2019-08-08] MEDS: ASPIRIN EC 81 MG TABLET PO ×2 (10:30→20:36)
--- NOTE | 2019-08-08 11:29 | P.PN_ITS ---
Subjective Subjective Date Patient Seen: 08/08/19 Time Patient Seen: 11:30 Interval history: Patient's pain is moderate to severe. Denies fever chills. He has been nauseous and had a couple episodes of vomiting earlier this morning. He has no chest pain but does feel little shorter breath. Exam Vital Signs (past 8 hours): - 08/08/19 03:40 08/08/19 09:00 Temperature 98.1 F 98.4 F Pulse Rate 72 73 Respiratory Rate 16 16 Blood Pressure 114/70 118/65 Pulse Oximetry 93 93 Oxygen Delivery Method Room Air Oxygen Flow Rate 0 Narrative Exam Narrative: 69-year-old male resting comfortably in bed in no apparent distress. Is clean, dry and intact. Calf is soft and nontender. Sensation grossly intact to light touch. Motor functions intact distal right lower extremity. Objective Labs Result Diagrams: 08/08/19 06:20 Labs: Laboratory Results - last 24 hr 08/08/19 06:20 Hgb 11.6 L Hct 33.[address] [address] XRay Report Signed Patient: Jl Chand RMR#: [id number] : [id number]:[id number] Age/Sex: 69 / MDate of Service: 08/08/19 Loc: JD442-4 Accession Number: [id number] Procedure: XR chest 2V Ordering Provider: Eamon Bateman P.A-C PROCEDURE: XR CHEST 2V INDICATIONS: cough, decreased sat. TECHNIQUE: 2 views of the chest were acquired. COMPARISON: None. FINDINGS: Surgical changes and devices: None. Lungs and pleura: Increased opacification in the lung bases which could represent atelectasis or pneumonia. No pleural effusions or pneumothorax. Mediastinum: Mediastinal contours are normal. Heart size is normal. Moderate- sized hiatal hernia Bones and chest wall: No suspicious bony abnormalities. Soft tissues appear unremarkable. IMPRESSION: Increased bibasilar opacification compatible with atelectasis versus pneumonia. Assessment & Plan Post-op Postoperative Procedures: Procedures Operation Date: 08/07/19 13:45 Actual Procedures Side Surgeon p Total Knee Arthroplasty Right Lloyd Seymour MD Postop day 1 status post total knee arthroplasty. Patient to mobilize with physical therapy. Patient had cough with some blood-tinged sputum this morning. Chest x-ray was ordered with increased bibasilar opacification compatible with atelectasis versus pneumonia. Hospitalist consultation ordered for abnormal chest x-ray and productive cough. Quality VTE Deep Vein Thrombosis/Pulmonary Embolism Present on Admission: No
--- NOTE | 2019-08-08 11:56 | P.CONS_ITS ---
History of Present Illness Consult details Date Patient Seen: 08/08/19 Time Patient Seen: 11:56 Chief complaint: [id number] Reason for consult: hemoptysis Requesting provider: Eamon Bateman Narrative: Mr. Chand is a 69-year-old male with a past medical history of well-controlled diabetes, GERD, hyperlipidemia, BPH as well as osteoarthritis. He underwent a total right knee replacement with Orthopedic surgery. Patient was intubated during the case. This morning he was coughing and noticed some black in the phlegm that was produced. A bit later in the morning he noticed a small amount of red-tinged fluid that came up, but commented that the primary color was yellow. He has never had anything like this happen before. He takes omeprazole for GERD and for ulcer prevention as he is also taking ibuprofen for his joint pain. He denies any recent fever or chills, he denies any shortness of breath or chest pain today. He has had no nausea or vomiting, and denies abdominal pain. He reports no epigastric burning. He states his feet are usually swollen, and they do not appear to be more swollen today. He does complain right knee pain but states that is controlled with pain medications. He does report remote travel history out of the country. He has been tested for TB previously and states that the testing was negative. He denies recent weight loss. He does not report any occupational exposure history and denies dyspnea on exertion. His vital signs have been unremarkable after surgery. His hem oglobin has gone from 12.5-11.6 this morning. Chest x-ray showed bibasilar opacities consistent with atelectasis or pneumonia. [facility] Medical History (Updated 04/24/19 @ 06:48 by William Buck) Anemia (Acute) Arthritis (Acute) Bilateral knee pain (Acute) BPH (benign prostatic hyperplasia) (Acute) Chronic neck and back pain (Acute) Diabetic neuropathy (Acute) GERD (gastroesophageal reflux disease) (Acute) Hiatal hernia (Acute) HLD (hyperlipidemia) (Acute) Incontinence of urine (Acute) Osteoarthritis (Acute) Type 2 diabetes mellitus (Acute) Surgical History (Updated 07/31/19 @ 12:37 by Dara Steele RN) History of arthroplasty of left knee (Acute 04/24/19) Hx of bilateral cataract extraction (Acute ~01/2019) Hx of tonsillectomy (Acute) S/P lumbar fusion (Acute) Social History household members: spouse Smoking Status: Never smoker alcohol intake: never Meds Home Medications and Allergies Home Medications Medication Instructions Recorded Confirmed Type atorvastatin 10 mg PO BEDTIME 04/10/19 08/07/19 History ibuprofen 400 mg PO Q6H PRN 04/10/19 08/07/19 History metformin 1,000 mg PO QAM 04/10/19 08/07/19 History omeprazole 20 mg PO BEDTIME 04/10/19 08/07/19 History tamsulosin 0.4 mg PO BEDTIME 04/10/19 08/07/19 History acetaminophen 650 mg PO Q6H PRN 07/31/19 08/07/19 History pregabalin 50 mg PO SEEINSTR 07/31/19 08/07/19 History Allergies Allergy/AdvReac Type Severity Reaction Status Date / Time No Known Drug Allergies Allergy Verified 04/24/19 06:46 Review of Systems Review of Systems Narrative: All other systems reviewed with the patient and are negative unless otherwise stated. Exam Vital Signs (past 8 hours): - 08/08/19 09:00 Temperature 98.4 F Pulse Rate 73 Respiratory Rate 16 Blood Pressure 118/65 Pulse Oximetry 93 Oxygen Delivery Method Room Air Oxygen Flow Rate 0 Narrative Exam Narrative: GENERAL APPEARANCE: Obese male in no acute distress. SKIN: Inspection of the skin reveals no rashes, ulcerations or petechiae. HEENT: The sclerae were anicteric and conjunctivae were pink and moist. Extrao cular movements were intact and pupils were equal, round with normal accommodation. External inspection of the ears and nose showed no scars, lesions, or masses. Lips, teeth, and gums showed normal mucosa. The oral mucosa, hard and soft palate, tongue and posterior pharynx were unremarkable. NECK: Supple and symmetric. There was no thyroid enlargement, and no tenderness, or masses were felt. CHEST: Normal AP diameter and normal contour without any kyphoscoliosis. LUNGS: Auscultation of the lungs revealed no wheezes, rhonchi, or rales. Breath sounds are diminished at the bilateral lung bases. CARDIOVASCULAR: There was a regular rate and rhythm without any murmurs, gallops, rubs. Peripheral pulses were 2+ and symmetric. ABDOMEN: Soft and nontender with normal bowel sounds. No ascites was noted. MUSCULOSKELETAL: There was no tenderness or effusions noted. Muscle strength and tone were normal. EXTREMITIES: No cyanosis, clubbing. Minimal Bilateral edema to just past his ankles, slightly worse on the right. Right knee dressings clear dry and intact. NEUROLOGIC: Alert and oriented x 3. Normal affect. Sensation to light touch intact bilaterally. Normal muscle tone. Objective Imaging Chest x-ray: My impression: Increased but still mild bibasilar opacification, most likely atelectasis. Radiologist's impression: Increased bibasilar opacification compatible with atelectasis versus pneumonia. Labs Result Diagrams: 08/08/19 06:20 Labs: Laboratory Results - last 24 hr 08/08/19 06:20 Hgb 11.6 L Hct 33.6 L Assessment & Plan Assessment & Plan narrative: Mr. Chand is a 69-year-old male with a past medical history of well-controlled diabetes, GERD, hyperlipidemia, BPH as well as osteoarthritis who underwent a right total knee yesterday. He had a small amount of hemoptysis this morning, this is most likely upper airway bleeding after his surgery yesterday as result of the intubation. The other possibility, given his GERD, is that he may have some upper GI bleeding, however this is highly unlikely given the clinical history. 1. Hemoptysis -this most likely represents some upper airway bleeding after intubation. His chest x-ray, history, and exam is more consistent with atelectasis rather than pneumonia. He is not tachycardic, short of breath, and his hemoptysis appears to be improving. Given surgery yesterday this is highly unlikely to represent a PE either. -incentive spirometer -continue to monitor H&H while inpatient. Would repeat H&H in 6-12 hours. If continuing to drop significantly (Hg below 11 or so), repeat in the morning. If it continues to drop further and hemoptysis continues please re-consult at that time. -CBC is unremarkable for infection -continue Patient's home PPI, if persistent hemoptysis or decreasing hemoglobin consider stopping ibuprofen -patient can stop IV fluids and continue diet at this time. 2. Diabetes, well controlled -patient is on appropriate medical therapy, continue metformin. 3. Hyperlipidemia, chronic -patient is on appropriate medical therapy, continue Lipitor 10 mg Please do not hesitate to re-consult as noted above or call with additional questions.
[2019-08-08 12:10] LABS: Add Manual Diff / Slide Review NO; Basophils Absolute Auto 0 /uL (0-100); Basophils Percent Auto 0.3 % (0-2); Eosinophils Absolute Auto 0 /uL (0-450); Eosinophils Percent Auto 0.4 % (2-4); Hematocrit 33.4 % (41-53); Hemoglobin 11.6 g/dL (13.5-17.5); Lymphocytes Absolute Auto 1100 /uL (1100-4500); Lymphocytes Percent Auto 9.8 % (25-40); Mean Corpuscular HGB Conc 34.9 % (30-36); Mean Corpuscular Hemoglobin 29.3 PG (26-34); Monocytes Absolute Auto 900 /uL (0-900); Monocytes Percent Auto 8.2 % (3-14); Neutrophils Absolute Auto 8800 /uL (1500-7000); Neutrophils Percent Auto 81.3 % (50-75); Platelet Count 156 X10^3/uL (150-400); Red Blood Cell Count 3.97 X10^6/uL (4.5-5.9); Red Cell Distribution Width 14.4 % (11.6-14.8); White Blood Cell Count 10.8 X10^3/uL (4.5-11.0)
--- NOTE | 2019-08-08 13:26 | PT.IIE ---
Addendum entered and electronically signed by Fanta Kidd PT 08/08/19 13:28: Bilateral UE and LE tremor noted during evaluation. Unclear whether new or baseline. Communicated with RN Original Note: Current Diagnoses Unilateral primary osteoarthritis, right knee (08/07/19) Surgery Performed Operation Date: 08/07/19 13:45 Actual Procedures p Total Knee Arthroplasty(Right) - Lloyd Seymour MD Surgical History (Last Updated 07/31/19 @ 12:37 by Dara Steele RN) History of arthroplasty of left knee (Acute 04/24/19) Hx of bilateral cataract extraction (Acute ~01/2019) Hx of tonsillectomy (Acute) S/P lumbar fusion (Acute) Medical History (Last Updated 04/24/19 @ 06:48 by William Buck) Anemia (Acute) Arthritis (Acute) Bilateral knee pain (Acute) BPH (benign prostatic hyperplasia) (Acute) Chronic neck and back pain (Acute) Diabetic neuropathy (Acute) GERD (gastroesophageal reflux disease) (Acute) Hiatal hernia (Acute) HLD (hyperlipidemia) (Acute) Incontinence of urine (Acute) Osteoarthritis (Acute) Type 2 diabetes mellitus (Acute) Physical Therapy Inpatient Evaluation/Re-Eval M1 PT/OT-IP Prior Functional Status Start: 08/08/19 08:56 Freq: NEEDED Status: Active Protocol: Document 08/08/19 13:01 AW (Rec: 08/08/19 13:26 AW [email or web address]) Medical Review Prior Functional Status Medical History Reviewed Yes Diet/Fluid Consistency Regular Communication WNL Mobility and Gait Pt used a hurry cane for stairs and for all community mobility as well as occasionally with household mobility. Per pt, the farthest he could walk was around [place] with a cart. Activities of Daily Living and IADL's Independent Social History Household Members spouse Living Arrangements House Number of Floors (Floors) One Floor Number of Stairs To Enter/Railing? 8 LUIS MIGUEL with narrow bilateral rails Home Environment Standard Height Toilet,Tub/ Shower Home Equipment Front Wheel Walker,Quad Cane, Straight Cane,Shower Seat without Backrest,Hand Held Shower,Grab Bars In Shower Employment Status Retired Additional Social History Comment Pt lives with his who has mobility limitations. She can provide only very limited assist. M2 PT-IP Current Condition Start: 08/08/19 08:56 Freq: NEEDED Status: Active Protocol: Document 08/08/19 13:01 AW (Rec: 08/08/19 13:26 AW [email or web address]) Physical Therapy Current Condition Current Condition Evaluation Date 08/08/19 Treatment Diagnosis s/p R TKA, impaired mobility Onset Date 08/07/19 Weight Bearing Status Weight Bearing Status Weight Bear as Tolerated M3 PT-IP Subjective Start: 08/08/19 08:56 Freq: NEEDED Status: Active Protocol: Document 08/08/19 13:01 AW (Rec: 08/08/19 13:26 AW [email or web address]) Subjective Physical Therapy Visit Type Type Initial Evaluation Visit Start Time 09:09 Visit Stop Time 12:49 Total Visit Minutes 38 Notes Split visit due to pt presentation on initial contact. Pt had cough with hemoptysis. Followed up after chest x-ray. Number of ROBOTICS SPECIALIST Visits 0 Physical Therapy Visit Comments Patient Comments Pt willing to work with therapy Patient Goals Pt hopes to go home with spouse assist. Therapy Pain Assessment Pain When Pain Assessed During Mobility Pain Present Pain Present Pain Reported Location Right Knee Intensity 8 Scale Used 4/10 at rest; 8/10 wt mobility Pain Management Techniques Apply Cold,Re-positioning, Timing of Activity with Medications M4 PT-IP Mobility and Gait Start: 08/08/19 08:56 Freq: NEEDED Status: Active Protocol: Document 08/08/19 13:01 AW (Rec: 08/08/19 13:26 AW [email or web address]) PT-Bed Mobility Assessment Supine to Sit Supine to Sit Minimal Assistance Scooting Scooting to Edge of Bed Standby Assistance PT-Transfer Assessment Sit to and From Stand Sit to and from Stand Minimal Assistance Equipment Transfer Assistive Device Gait Belt,Front Wheeled Walker Orthotic/Prosthetic Devices or Brace: No Transfers Transfer Destination Chair Transfer Technique ambulated with FWW Transfer Ability Level of Assist Minimal Assistance Comments Mobility Comments Pt required extra time and support for his operative leg to complete supine to sit. Pt denied lightheadedness and nausea sitting EOB. Sit to stand was completed with min A x 1. Transfer to chair also required min A x 1, cues for safe walker management, and cues for sequencing. Pt was positioned in the chair with ice pack applied, call light and all needs within reach, and spouse visiting. Gait Assessment Gait Gait Assistance Required: Contact Guard Assist Distance (Feet) 10 Able to Maintain Weight Bearing Status Yes During Gait Assistive Devices Assistive Device Gait Belt,Front Wheeled Walker Orthotic/Prosthetic Devices or Brace: No Gait Deviations General Gait Pattern Antalgic,Decreased Stride Length,Decreased Feet Clearance,Flexed Trunk,Step-to Gait Factors Limiting Gait Function Factors Limiting Gait Function Decreased Activity Tolerance, Decreased Sensation,Decreased Strength,Limited Range of Motion,Pain,Poor Balance Comments Gait Comments Pt exited the right side of the bed, ambulated with FWW CGA to sink and back to chair, including turns both directions. He was able to bear weight on the RLE but step length was extremely short and pt required extra time. VS at rest: 110/46 mm Hg, 102 bpm, 92% on room air VS with activity: 126/70 mm Hg , 167 bpm, 89-90% on room air Tachycardia reported to RN. Stair Climbing Assessment Comments Stair Climbing Comments Not assessed. PT-Balance Assessment Sitting Balance and Reactions Static Sitting Balance Ability Good Dynamic Sitting Balance Ability Good Standing Balance and Reactions Static Standing Balance Ability Good Dynamic Standing Balance Ability Fair Device Used FWW M5 PT-IP Objective Assessments Start: 08/08/19 08:56 Freq: NEEDED Status: Active Protocol: Document 08/08/19 13:01 AW (Rec: 08/08/19 13:26 AW [email or web address]) Orientation Orientation/Cognition Level of Alertness Lethargic Orientation Name,Month,Place,Situation Language Function Ability No Deficits Noted Safety Awareness Decreased Safety Awareness Memory Description No Deficits Noted Gross Range of Motion Upper Extremity ROM Assessment Within Functional Limits Lower Extremity ROM Assessment Right Impaired Strength Upper Extremity Strength Assessment Within Functional Limits Lower Extremity Strength Assessment Right Impaired Comments Strength Comments LLE strength grossly 4+/5 except for hip flexion 4-/5 Coordination Assessment Gross Coordination Gross Coordination WNL Sensation Assessment Sensation Gross Sensation Left UE Impaired,Right LE Impaired,Left LE Impaired Comments Sensation Comments Pt with peripheral neuropathy affecting bilateral feet and right arm with reported tingling/numbness M6 PT-IP Treatment Start: 08/08/19 08:56 Freq: NEEDED Status: Active Protocol: Document 08/08/19 13:01 AW (Rec: 08/08/19 13:26 AW [email or web address]) Physical Therapy Treatment Education Education Provided Precautions,Weight Bearing Status,Post-Op Packet,Safety Other Treatments Other Treatment Performed PT educated pt on plan of care , post-op exercises, functional goals, weightbearing status, and safe use of FWW. M7 PT-IP Assessment and Plan Start: 08/08/19 08:56 Freq: NEEDED Status: Active Protocol: Document 08/08/19 13:01 AW (Rec: 08/08/19 13:26 AW [email or web address]) PT Summary Assessment and Plan Potential Rehabilitation Potential Good Status of Condition at Evaluation Evolving Summary Impairments Pain,Strength,Balance, Sensation,Bed Mobility, Transfers,Gait,Activity Tolerance Assessment Summary Art is a 69 yo man seen for PT evaluation on POD1 following R TKA. PLOF: Pt was modified independent for ambulation with hurrycane for all community mobility and occasionally for household mobility. He lives with his who is able to provide very limited physical assist. CLOF: Pt required min assist for bed mobility, sit to stand , and transfers; CGA for gait with FWW. Stairs were not assessed at this time due to pt's reported pain of 8/10 with ambulation. Depending on pain management and progress toward functional goals, PT recommends discharge to home with home health vs SNF rehab. Will continue to assess. Goals Bed Mobility Goal Standby Assistance Transfer Goal Standby Assistance,Four Wheeled Walker Gait Goal Standby Assistance,Front Wheel Walker Gait Distance 100 Other Goals up/down 8 stairs with bilateral rails CGA Days to Meet Goals 5 Frequency of Treatment Frequency Of Treatment Twice a Day Treatment Plan Physical Therapy Treatment Plan Bed Mobility Training,Transfer Training,Gait Training, Therapeutic Exercise,Balance Retraining,Post Op Education, Discharge Planning,Hot or Cold Pack,Neuromuscular Re-ed, Coordination Retraining,Manual Therapy Recommendations To Nursing Amount of Assist Needed 1 Person Assist,2 Person Assist Discharge Recommendations PT Discharge Recommendations Home with Assistance,Home Health,SNF Rehab Other Discharge Recommendations Depending on progress. Continue to assess
[2019-08-08] MEDS: BENZONATATE 100 MG CAPSULE PO (14:32)
[2019-08-08] MEDS: PREGABALIN 50 MG CAPSULE PO (14:32)
[2019-08-08] MEDS: HYDROMORPHONE 2 MG TABLET PO (14:33)
[2019-08-08] MEDS: BENZOCAINE/MENTHOL 1 LOZ PKT 1 EACH PO (14:34)
--- NOTE | 2019-08-08 14:50 | CM.IDA ---
Initial DCP Assessment Note: Pt is a 69 yo male, resident of [place], [place]. Pt now POD#1 from right knee surgery by Dr Seymour. PCP: Giuliana Arroyo Payer: [place] HART Reviewed chart and met w/pt, pt's spouse Dara Lima and her sister Ev at bedside, explained role. Pt explains he had a terrible night d/t acid reflux and so is having a difficult time today. Pt and spouse expect to return home, although spouse just slipped on ice this morning outside their home and landed straight on her lower back, she is using a w/c at pt's bedside, cannot ambulate long distances. PT recommending home vs SNF depending on pt's progress. Pt explains he has outpt PT arranged, this LOG DECK TENDER suggested home health PT for a week or two and pt/spouse said they would consider. This LOG DECK TENDER following closely and will revisit tomorrow to further discuss DCP after AM therapy session. BRITNEY Minor Discharge Planning/Care Management CM Discharge Assessment Start: 08/08/19 14:46 Freq: Status: Active Protocol: Document 08/08/19 14:46 MINNIE (Rec: 08/08/19 14:50 MINNIE [email or web address]) Discharge Planning Assessment Assigned Computer Repair Engineer BRITNEY Xie DPOA/Assigned Designee Name Dara Chand, spouse Contact Information [phone] Advance Directives? Yes Advance Directives on File No History Provided By Patient,Significant Other, Medical Record Prior Living Arrangements House Household Members spouse Type of transporation used prior to Drives own vehicle admit Independent with ADL's Yes: Cannot ambulate long distances, uses cane inside Is patient alert and oriented? Yes Patient/Family Preference [facility] Facility,Home with Home Health Barriers to Discharge Yes Comment Slow to mobilize, pain, co- morbidities Discharge Plan Home Transportation Arrangement Spouse Referrals Initiated None needed Additional Comment At this time Whiteboard Updated in Patient Room with Yes name and ext. # of Computer Repair Engineer Review Status In Process
--- NOTE | 2019-08-08 15:48 | PC.NURSE ---
Ortho: Having several concerns today, coughing up blood tinged sputum and some black sputum. Cough is freq, more dry, throat is very sore. O2 sats borderline this am between 90-92%, this afternoon O2 sats decreased to 85% on ra and O2 was applied. O2 sats at 94% on 2L, pt reports he doesn't smoke or have a problem usually, ELIEZER Fernandez and Dr. Thomson made aware of cough, bloody sputum, increased O2 requirements this afternoon. See orders. O2 remains on at 2L. RT came and saw pt. IS was obtained and pt instructed in use. Ues same to 1500. RT reports they will follow w/patient. Pt also had problems w/nausea, vomited x2, both time it was black in color, pt reports hx of gerd and that sometimes he increases his prilosec at home, he received vistaril, zofran and received new order for reglan which was given. Pt has stopped vomiting this afternoon and nausea has improved. He ate nothing a bkft, and a sm amt for lunch. Has some general body twitching and both ELIEZER Bateman and Dr. Thomson aware. Got some tessalon for his cough and cepacol for his throat and he reports these have helped w/sore throat and he has been coughing less. Was up in the chair for a short time. Pt has also had a red and swollen rt lower leg and ELIEZER Bateman and Dr. Thomson aware. Mathew wrap was removed and leg is up on a pillow, leg remains red and swollen and pt reports it take time for edema to decrease for him. Pain med switch from oxy to dilaudid to see if that helped with reducing nausea, pt reports he cant tell much difference with either med. Lots of family today who are concerned about him have been visiting. Cont w/poc.
--- NOTE | 2019-08-08 17:03 | PT.IPTN ---
Current Diagnoses Unilateral primary osteoarthritis, right knee (08/07/19) Surgery Performed Operation Date: 08/07/19 13:45 Actual Procedures p Total Knee Arthroplasty(Right) - Lloyd Seymour MD Physical Therapy Treatment Note M2 PT-IP Current Condition Start: 08/08/19 08:56 Freq: NEEDED Status: Active Protocol: Document 08/08/19 13:01 AW (Rec: 08/08/19 13:26 AW [email or web address]) Physical Therapy Current Condition Current Condition Evaluation Date 08/08/19 Treatment Diagnosis s/p R TKA, impaired mobility Onset Date 08/07/19 Weight Bearing Status Weight Bearing Status Weight Bear as Tolerated M3 PT-IP Subjective Start: 08/08/19 08:56 Freq: NEEDED Status: Active Protocol: Document 08/08/19 16:50 AW (Rec: 08/08/19 17:03 AW [id number]) Subjective Physical Therapy Visit Type Type Treatment Note Visit Start Time 16:28 Visit Stop Time 16:47 Total Visit Minutes 19 Physical Therapy Visit Comments Patient Comments This knee has been a lot harder than the last one Therapy Pain Assessment Pain When Pain Assessed During Mobility Pain Present Pain Present Pain Reported Location Right Knee Pain Behaviors Facial Grimacing,Guarding, Restlessness,Wincing Pain Management Techniques Apply Cold,Re-positioning, Timing of Activity with Medications M4 PT-IP Mobility and Gait Start: 08/08/19 08:56 Freq: NEEDED Status: Active Protocol: Document 08/08/19 16:50 AW (Rec: 08/08/19 17:03 AW [id number]) PT-Bed Mobility Assessment Supine to Sit Supine to Sit Minimal Assistance Scooting Scooting to Edge of Bed Standby Assistance PT-Transfer Assessment Sit to and From Stand Sit to and from Stand Moderate Assistance Equipment Transfer Assistive Device Gait Belt,Front Wheeled Walker Orthotic/Prosthetic Devices or Brace: No Transfers Transfer Destination Chair Transfer Technique ambulated with FWW Transfer Ability Level of Assist Minimal Assistance Comments Mobility Comments Pt sitting in bed upon arrival . He needed min A x 1 to move his right leg toward EOB. Pt required seated rest break at EOB. SpO2 maintained mid-90's on 2 lpm. Sit to stand required mod assist x 1 with pt reporting increased pain in the right knee. Transfer to chair was completed with min A x 1 and pt with poor eccentric control of descent in spite of verbal cues to use UE's for support. Pt was reclined, ice packs applied, call light and all needs within reach. Gait Assessment Gait Gait Assistance Required: Contact Guard Assist Distance (Feet) 20 Able to Maintain Weight Bearing Status Yes During Gait Assistive Devices Assistive Device Gait Belt,Front Wheeled Walker Orthotic/Prosthetic Devices or Brace: No Gait Deviations General Gait Pattern Antalgic,Decreased Stride Length,Decreased Feet Clearance,Flexed Trunk,Step-to Gait Factors Limiting Gait Function Factors Limiting Gait Function Decreased Activity Tolerance, Decreased Sensation,Decreased Strength,Limited Range of Motion,Pain,Poor Balance Comments Gait Comments Pt ambulated with FWW CGA but complained of increased pain. He is bearing weight on the RLE but relies heavily on the walker for off-weighting. Stair Climbing Assessment Comments Stair Climbing Comments Not assessed. M5 PT-IP Objective Assessments Start: 08/08/19 08:56 Freq: NEEDED Status: Active Protocol: Document 08/08/19 13:01 AW (Rec: 08/08/19 13:26 AW [email or web address]) Orientation Orientation/Cognition Level of Alertness Lethargic Orientation Name,Month,Place,Situation Language Function Ability No Deficits Noted Safety Awareness Decreased Safety Awareness Memory Description No Deficits Noted Gross Range of Motion Upper Extremity ROM Assessment Within Functional Limits Lower Extremity ROM Assessment Right Impaired Strength Upper Extremity Strength Assessment Within Functional Limits Lower Extremity Strength Assessment Right Impaired Comments Strength Comments LLE strength grossly 4+/5 except for hip flexion 4-/5 Coordination Assessment Gross Coordination Gross Coordination WNL Sensation Assessment Sensation Gross Sensation Left UE Impaired,Right LE Impaired,Left LE Impaired Comments Sensation Comments Pt with peripheral neuropathy affecting bilateral feet and right arm with reported tingling/numbness M6 PT-IP Treatment Start: 08/08/19 08:56 Freq: NEEDED Status: Active Protocol: Document 08/08/19 16:50 AW (Rec: 08/08/19 17:03 AW [id number]) Physical Therapy Treatment Exercises Exercises Ankle Pumps,Quad Sets,Heel Slides,Passive Knee Extension Hang Education Education Provided Precautions,Safety Other Treatments Other Treatment Performed Heel slides performed passively with limited excursion due to pain. M7 PT-IP Assessment and Plan Start: 08/08/19 08:56 Freq: NEEDED Status: Active Protocol: Document 08/08/19 16:50 AW (Rec: 12/12/19 17:03 AW [id number]) PT Summary Assessment and Plan Summary Impairments Pain,Strength,Balance, Sensation,Bed Mobility, Transfers,Gait,Activity Tolerance Progress Towards Goals Slow Progress due to Pain Assessment Summary Pt progressed gait distance but continues to be limited by pain. He is bearing weight on the RLE but relies heavily on the walker for off-weighting. Discussed recommendation for home health with pt who was willing to consider the possibility. Goals Bed Mobility Goal Standby Assistance Transfer Goal Standby Assistance,Four Wheeled Walker Gait Goal Standby Assistance,Front Wheel Walker Gait Distance 100 Other Goals up/down 8 stairs with bilateral rails CGA Days to Meet Goals 6 Frequency of Treatment Frequency Of Treatment Twice a Day Treatment Plan Physical Therapy Treatment Plan Bed Mobility Training,Transfer Training,Gait Training, Therapeutic Exercise,Balance Retraining,Post Op Education, Discharge Planning,Hot or Cold Pack,Neuromuscular Re-ed, Coordination Retraining,Manual Therapy Other Recommendations and Next Treatment review ther ex, progress gait, Focus trial stairs if able Recommendations To Nursing Amount of Assist Needed 1 Person Assist,2 Person Assist Discharge Recommendations PT Discharge Recommendations Home with Assistance,Home Health,SNF Rehab Other Discharge Recommendations Depending on progress. Continue to assess
--- NOTE | 2019-08-08 17:13 | PC.NURSE ---
Pt alert and oriented. No more complaints of nausea at this time. Non productive cough. Dr Thomson rounding with patient. Right leg slightly edematous and red. WCTM for any changes or increased swelling. Aquacell dressing over right knee incision clean dry and intact. Pain controlled with PRN hydromorphine and scheduled ibprofen. Pt voiding in urinal without difficulty. Bed alarm set.
[2019-08-08] MEDS: PANTOPRAZOLE 20 MG TABLET PO (20:37)
[2019-08-08] MEDS: TAMSULOSIN 0.4 MG CAPSULE PO (20:37)
[2019-08-08] MEDS: ATORVASTATIN 10 MG TABLET PO (20:37)
[2019-08-08] MEDS: PREGABALIN 50 MG CAPSULE 100 MG PO (20:39)
[2019-08-09] VITALS (10 sets, daily range): BP systolic 118–143; BP diastolic 59–75; PULSE 62–92; RESP 16–18; TEMP 36.6–37.7; O2SAT 91–98
[2019-08-09] MEDS: IBUPROFEN 400 MG TABLET PO ×6 (00:44→23:48)
[2019-08-09] MEDS: METFORMIN HCL 500 MG TABLET 1000 MG PO (07:58)
[2019-08-09] MEDS: ASPIRIN EC 81 MG TABLET PO ×2 (07:59→20:18)
[2019-08-09] MEDS: ACETAMINOPHEN 325 MG TABLET 650 MG PO ×3 (07:59→20:18)
[2019-08-09] MEDS: PREGABALIN 50 MG CAPSULE PO (07:59)
[2019-08-09] MEDS: OXYCODONE IR 5 MG TABLET 10 MG PO ×4 (08:31→20:18)
--- NOTE | 2019-08-09 09:52 | P.PN_ITS ---
Subjective Subjective Date Patient Seen: 08/09/19 Time Patient Seen: 09:52 Interval history: Patient's pain is well controlled. Denies fever /chills. No nausea/ vomiting. His cough has improved. Did have an episode this morning with blood-tinged sputum. Hasn't occurred since. He notes his throat feels irritated. He has not yet worked with Physical therapy this morning. His is home to assist him but he has several steps into his house. Exam Vital Signs (past 8 hours): - 08/09/19 06:00 08/09/19 07:11 08/09/19 09:39 Temperature 98.1 F 97.8 F Pulse Rate 76 84 Respiratory Rate 16 17 Blood Pressure 137/64 126/68 Pulse Oximetry 98 96 95 Oxygen Delivery Method Nasal Cannula Oxygen Flow Rate 1 Narrative Exam Narrative: Pleasant 61-year-old male resting comfortably in bed in no apparent distress. Right knee dressing is clean, dry and intact. Right calf is soft and nontender. Motor functions intact distally. Sensation grossly intact to light touch. SCDs are on and functioning. Objective Labs Result Diagrams: 08/08/19 06:20 Labs: Laboratory Results - last 24 hr 08/08/19 06:20 WBC 10.8 RBC 3.97 L Hgb 11.6 L Hct 33.4 L MCV 84.0 MCH 29.3 MCHC 34.9 RDW 14.4 Plt Count 156 Neut % (Auto) 81.3 H Lymph % (Auto) 9.8 L Gordon % (Auto) 8.2 Eos % (Auto) 0.4 L Baso % (Auto) 0.3 Neut # (Auto) 8800 H Lymph # (Auto) 1100 Gordon # (Auto) 900 Eos # (Auto) 0 Baso # (Auto) 0 Assessment & Plan Post-op Postoperative Procedures: Procedures Operation Date: 08/07/19 13:45 Actual Procedures Side Surgeon p Total Knee Arthroplasty Right Lloyd Seymour MD Postop day 2. Mobilize with physical therapy. Repeat H&H (refer to hospitalist note August 08, 2019 regarding results.) Due to limited mobility and stairs into his house who continue with rehab today and possible discharge home huan rrow. Quality VTE Deep Vein Thrombosis/Pulmonary Embolism Present on Admission: No
[2019-08-09] MEDS: INFLUENZA VACCINE 0.5 ML SYRINGE IM (10:28)
[2019-08-09 10:57] LABS: Hematocrit 29.9 % (41-53); Hemoglobin 10.5 g/dL (13.5-17.5)
--- NOTE | 2019-08-09 11:11 | PT.IPTN ---
Current Diagnoses Unilateral primary osteoarthritis, right knee (08/07/19) Surgery Performed Operation Date: 08/07/19 13:45 Actual Procedures p Total Knee Arthroplasty(Right) - Lloyd Seymour MD Physical Therapy Treatment Note M2 PT-IP Current Condition Start: 08/08/19 08:56 Freq: NEEDED Status: Active Protocol: Document 08/08/19 13:01 AW (Rec: 08/08/19 13:26 AW [email or web address]) Physical Therapy Current Condition Current Condition Evaluation Date 08/08/19 Treatment Diagnosis s/p R TKA, impaired mobility Onset Date 08/07/19 Weight Bearing Status Weight Bearing Status Weight Bear as Tolerated M3 PT-IP Subjective Start: 08/08/19 08:56 Freq: NEEDED Status: Active Protocol: Document 08/09/19 11:11 AB (Rec: 08/09/19 12:38 AB [email or web address]) Subjective Physical Therapy Visit Type Type Treatment Note Visit Start Time 11:11 Visit Stop Time 11:41 Total Visit Minutes 30 Number of ENGINE REPAIR SUPERVISOR Visits 0 Physical Therapy Visit Comments Patient Comments pt agreeable to do PT Therapy Pain Assessment Pain When Pain Assessed During Mobility Pain Present Pain Present Pain Reported Location Right Knee Intensity 8 Scale Used Numeric (1 - 10) Pain Management Techniques Apply Cold,Modification of Treatment,Re-positioning, Timing of Activity with Medications M4 PT-IP Mobility and Gait Start: 08/08/19 08:56 Freq: NEEDED Status: Active Protocol: Document 08/09/19 11:11 AB (Rec: 08/09/19 12:38 AB [email or web address]) PT-Bed Mobility Assessment Supine to Sit Supine to Sit Standby Assistance,Head of Bed Elevated PT-Transfer Assessment Sit to and From Stand Sit to and from Stand Contact Guard Assistance,1 Person Assistance,Use of Upper Extremities Equipment Transfer Assistive Device Gait Belt,Front Wheeled Walker Orthotic/Prosthetic Devices or Brace: No Transfers Transfer Destination Chair Transfer Technique Stand Step Pivot Transfer Ability Level of Assist Contact Guard Assistance, Minimal Assistance,1 Person Assistance,Use of Upper Extremities Comments Mobility Comments pt positioned HOB elevated prior to getting up, stated that he can prop his his up at home and prefers to have it up prior to getting up. completed supine to sit with HOB elevated SBA. pt completed stand step transfer to the chair using FWW CGA to min A. ambulated in room and required min to mod A and cues . educated pt on safety and weight bearing on RLE. attempted single leg stand with FWW for support to assess if pt will be able to do stairs but pt unable to complete with c/o increase RLE pain. stated that he cannot do it at this time and maybe in a day or 2. pt agreed to sit up on chair. positioned pt on chair. call light and table placed within reach. ice pack provided. Gait Assessment Gait Gait Assistance Required: Minimum Assistance,Moderate Assistance Distance (Feet) 35 Able to Maintain Weight Bearing Status Yes During Gait Assistive Devices Assistive Device Gait Belt,Large Based Quad Cane Orthotic/Prosthetic Devices or Brace: No Gait Deviations General Gait Pattern Antalgic,Decreased Stride Length,Decreased Feet Clearance,Step-to Gait Factors Limiting Gait Function Factors Limiting Gait Function Decreased Activity Tolerance, Decreased Strength,Difficulty Following Directions,Limited Range of Motion,Pain,Poor Balance,Poor Safety Awareness Comments Gait Comments pt presents with moderate antalgic gait and unable to maintain weight bearing on RLE ( tolerated ~ 1 sec of weight bearing ) with increase UE weight bearing on FWW for support. M5 PT-IP Objective Assessments Start: 08/08/19 08:56 Freq: NEEDED Status: Active Protocol: Document 08/08/19 13:01 AW (Rec: 08/08/19 13:26 AW [email or web address]) Orientation Orientation/Cognition Level of Alertness Lethargic Orientation Name,Month,Place,Situation Language Function Ability No Deficits Noted Safety Awareness Decreased Safety Awareness Memory Description No Deficits Noted Gross Range of Motion Upper Extremity ROM Assessment Within Functional Limits Lower Extremity ROM Assessment Right Impaired Strength Upper Extremity Strength Assessment Within Functional Limits Lower Extremity Strength Assessment Right Impaired Comments Strength Comments LLE strength grossly 4+/5 except for hip flexion 4-/5 Coordination Assessment Gross Coordination Gross Coordination WNL Sensation Assessment Sensation Gross Sensation Left UE Impaired,Right LE Impaired,Left LE Impaired Comments Sensation Comments Pt with peripheral neuropathy affecting bilateral feet and right arm with reported tingling/numbness M6 PT-IP Treatment Start: 08/08/19 08:56 Freq: NEEDED Status: Active Protocol: Document 08/09/19 11:11 AB (Rec: 08/09/19 12:38 AB [email or web address]) Physical Therapy Treatment Exercises Exercises Heel Slides Education Education Provided Precautions,Weight Bearing Status,Safety M7 PT-IP Assessment and Plan Start: 08/08/19 08:56 Freq: NEEDED Status: Active Protocol: Document 08/09/19 11:11 AB (Rec: 08/09/19 12:38 AB [email or web address]) PT Summary Assessment and Plan Potential Rehabilitation Potential Good Summary Impairments Pain,ROM,Strength,Balance, Coordination,Sensation,Tone, Cognition,Bed Mobility, Transfers,Gait,Activity Tolerance Progress Towards Goals Slow Progress due to Pain,Slow Progress due to Medical Issues,Slow Progress due to Activity Tolerance Assessment Summary pt requires min to mod A with ambulation and unable tolerate much activity. attempted single leg stance using FWW to assess if pt is going to be able to do stair climbing but pt unable to complete. pt's spouse will not be able to assist pt physically at home. informed pt regarding SNF or homehealth services for home. pt understood. will continue to assess progress but at this time may require SNF rehab. Goals Bed Mobility Goal Standby Assistance Transfer Goal Standby Assistance,Four Wheeled Walker Gait Goal Standby Assistance,Front Wheel Walker Gait Distance 100 Other Goals up/down 8 stairs with bilateral rails CGA Days to Meet Goals 10 Frequency of Treatment Frequency Of Treatment Twice a Day Treatment Plan Physical Therapy Treatment Plan Bed Mobility Training,Transfer Training,Gait Training, Therapeutic Exercise,Balance Retraining,Post Op Education, Discharge Planning,Hot or Cold Pack,Neuromuscular Re-ed, Coordination Retraining,Manual Therapy Other Recommendations and Next Treatment gait training, stair training Focus Recommendations To Nursing Amount of Assist Needed 1 Person Assist Discharge Recommendations PT Discharge Recommendations Home with Assistance,Home Health,SNF Rehab
--- NOTE | 2019-08-09 15:31 | PC.NURSE ---
This RN took report from MICHAEL Mccarthy at 1400; reports mild pain of 2/10; sitting up in chair, right leg elevated; personal belongings and call light within reach
--- NOTE | 2019-08-09 15:41 | PC.NURSE ---
Addendum entered by Maria M Parish R.N. 08/09/19 23:28: Assist x 1 with walker to bed from recliner. RLE supported on lengthwise pillow. BL calf scd's replaced. Pt denies difficulty with urination. Rates right knee pain 09/06. Meds as per emar. Encouraged to call for needs. Original Note: Pt awake and alert sitting upright in recliner with BL LE's elevated. Ice to right knee. Reports pain dull in nature to right knee 11/04. Administered oxycodone in preparation for P.T. this afternoon. Pt admits to full sensation to BL LE's. Palpable pedal pulses BL. Reinforced to pt not to attempt to get out of chair without calling for staff assistance and pt verbalizes understanding and agreement.
--- NOTE | 2019-08-09 15:48 | PT.IPTN ---
This is to certify that I have reviewed this documentation and is involved with this pt's care. Current Diagnoses Unilateral primary osteoarthritis, right knee (08/07/19) Surgery Performed Operation Date: 08/07/19 13:45 Actual Procedures p Total Knee Arthroplasty(Right) - Lloyd Seymour MD Physical Therapy Treatment Note M2 PT-IP Current Condition Start: 08/08/19 08:56 Freq: NEEDED Status: Active Protocol: Document 08/08/19 13:01 AW (Rec: 08/08/19 13:26 AW [email or web address]) Physical Therapy Current Condition Current Condition Evaluation Date 08/08/19 Treatment Diagnosis s/p R TKA, impaired mobility Onset Date 08/07/19 Weight Bearing Status Weight Bearing Status Weight Bear as Tolerated M3 PT-IP Subjective Start: 08/08/19 08:56 Freq: NEEDED Status: Active Protocol: Document 08/09/19 15:48 JG (Rec: 08/09/19 17:50 JG [id number]) Subjective Physical Therapy Visit Type Type Treatment Note Visit Start Time 15:48 Visit Stop Time 16:12 Total Visit Minutes 24 Notes Treatment led by STEPAN Ordoñez, supervised by PT Hyun Number of VENTILATED RIB FITTER Visits 0 Physical Therapy Visit Comments Patient Comments pt agreeable to do PT Therapy Pain Assessment Pain When Pain Assessed During Mobility Pain Present Pain Present Pain Reported Location Right Knee Intensity 7 Scale Used Numeric (1 - 10) Pain Behaviors Facial Grimacing Pain Management Techniques Apply Cold,Modification of Treatment,Re-positioning, Timing of Activity with Medications M4 PT-IP Mobility and Gait Start: 08/08/19 08:56 Freq: NEEDED Status: Active Protocol: Document 08/09/19 15:48 JG (Rec: 08/09/19 17:50 JG [id number]) PT-Transfer Assessment Sit to and From Stand Sit to and from Stand Contact Guard Assistance, Minimal Assistance,1 Person Assistance,Use of Upper Extremities Equipment Transfer Assistive Device Gait Belt,Front Wheeled Walker Orthotic/Prosthetic Devices or Brace: No Transfers Transfer Destination Chair Transfer Technique ambulate with FWW Transfer Ability Level of Assist Contact Guard Assistance,1 Person Assistance,Use of Upper Extremities Comments Mobility Comments Pt sitting in chair at start of visit. Pt performed set of 10 heel slides prior to mobility. Pt performed sit to/ from stand to chair 2 times during session to ambulate around room. Pt required no more than CGA for sit to stand , min A for stand to sit to assist with controlled descent . O2 started to desaturate to 88% after ambulation, recovered to 95% with cuing for deep breathing. Pt left in chair at end of session with B LE elevated and ice applied to R knee, call light and needs within reach. Gait Assessment Gait Gait Assistance Required: Minimum Assistance Distance (Feet) 20 Able to Maintain Weight Bearing Status Yes During Gait Assistive Devices Assistive Device Gait Belt,Front Wheeled Walker Orthotic/Prosthetic Devices or Brace: No Gait Deviations General Gait Pattern Antalgic,Decreased Stride Length,Decreased Feet Clearance,Step-to Gait Factors Limiting Gait Function Factors Limiting Gait Function Decreased Activity Tolerance, Decreased Strength,Difficulty Following Directions,Limited Range of Motion,Pain,Poor Balance,Poor Safety Awareness Comments Gait Comments Pt required no more than min A during gait for stability. Pt cont to demonstrate antalgic gait pattern with minimal WBing on R LE. Cued pt to contract quad when WBing on R LE with minimal improvement in gait. Pt noted that he had pain when he contracted his quad which was why he hadn't been doing it. Attempted single leg stance and pt only able to stand for ~1 sec on R LE with B UE support on walker . Pt ambulated ~20 ft around room and back to chair. Donned pt's shoes and ambulated another ~20 ft arond the room. Pt demonstrated improved foot clearance and stability with shoes on. Required frequent cuing during ambulation to slow down for safety. Stair Climbing Assessment Comments Stair Climbing Comments Not assessed M5 PT-IP Objective Assessments Start: 08/08/19 08:56 Freq: NEEDED Status: Active Protocol: Document 08/08/19 13:01 AW (Rec: 08/08/19 13:26 [email or web address]) Orientation Orientation/Cognition Level of Alertness Lethargic Orientation Name,Month,Place,Situation Language Function Ability No Deficits Noted Safety Awareness Decreased Safety Awareness Memory Description No Deficits Noted Gross Range of Motion Upper Extremity ROM Assessment Within Functional Limits Lower Extremity ROM Assessment Right Impaired Strength Upper Extremity Strength Assessment Within Functional Limits Lower Extremity Strength Assessment Right Impaired Comments Strength Comments LLE strength grossly 4+/5 except for hip flexion 4-/5 Coordination Assessment Gross Coordination Gross Coordination WNL Sensation Assessment Sensation Gross Sensation Left UE Impaired,Right LE Impaired,Left LE Impaired Comments Sensation Comments Pt with peripheral neuropathy affecting bilateral feet and right arm with reported tingling/numbness M6 PT-IP Treatment Start: 08/08/19 08:56 Freq: NEEDED Status: Active Protocol: Document 08/09/19 15:48 JG (Rec: 08/09/19 17:50 JG [id number]) Physical Therapy Treatment Exercises Exercises Heel Slides Education Education Provided Safety M7 PT-IP Assessment and Plan Start: 08/08/19 08:56 Freq: NEEDED Status: Active Protocol: Document 08/09/19 15:48 JG (Rec: 08/09/19 17:50 JG [id number]) PT Summary Assessment and Plan Potential Rehabilitation Potential Good Summary Impairments Pain,ROM,Strength,Balance, Coordination,Sensation,Tone, Cognition,Bed Mobility, Transfers,Gait,Activity Tolerance Progress Towards Goals Slow Progress due to Pain,Slow Progress due to Activity Tolerance Assessment Summary Pt required min A with mobility and ambulation. Pt cont to have high pain levels with WBing and is unable to tolerate much activity. Pt cont to be unable to stand on R LE for more than 1 sec with FWW support. Pt required frequent cuing during session for safety. PT will cont to assess as pt's pain levels improve, currently recommending d/c to SNF. Goals Bed Mobility Goal Standby Assistance Transfer Goal Standby Assistance,Front Wheeled Walker Gait Goal Standby Assistance,Front Wheel Walker Gait Distance 100 Other Goals up/down 8 stairs with bilateral rails CGA Days to Meet Goals 10 Frequency of Treatment Frequency Of Treatment Twice a Day Treatment Plan Physical Therapy Treatment Plan Bed Mobility Training,Transfer Training,Gait Training, Therapeutic Exercise,Balance Retraining,Post Op Education, Discharge Planning,Hot or Cold Pack,Neuromuscular Re-ed, Coordination Retraining,Manual Therapy Other Recommendations and Next Treatment gait training, stair training Focus as shavon Recommendations To Nursing Amount of Assist Needed 1 Person Assist Discharge Recommendations PT Discharge Recommendations Home with Assistance,Home Health,SNF Rehab Other Discharge Recommendations SNF vs. home with assist/home health
[2019-08-09] MEDS: ATORVASTATIN 10 MG TABLET PO (20:18)
[2019-08-09] MEDS: SODIUM CHLORIDE 0.9% FLUSH 10 ML IV (20:19)
[2019-08-09] MEDS: TAMSULOSIN 0.4 MG CAPSULE PO (21:27)
[2019-08-09] MEDS: PANTOPRAZOLE 40 MG TABLET PO (21:27)
[2019-08-09] MEDS: PREGABALIN 50 MG CAPSULE 100 MG PO (21:30)
[2019-08-10 03:00] VITALS: BP 127/64; PULSE 86; RESP 16; TEMP 37; O2SAT 91
[2019-08-10] MEDS: IBUPROFEN 400 MG TABLET PO ×3 (06:04→12:40)
[2019-08-10 08:00] VITALS: BP 119/65; PULSE 81; RESP 18; TEMP 36.9; O2SAT 94
[2019-08-10] MEDS: PREGABALIN 50 MG CAPSULE PO (08:32)
[2019-08-10] MEDS: ASPIRIN EC 81 MG TABLET PO (08:32)
[2019-08-10] MEDS: METFORMIN HCL 500 MG TABLET 1000 MG PO (08:32)
[2019-08-10] MEDS: OXYCODONE IR 5 MG TABLET 10 MG PO ×2 (08:32→12:40)
[2019-08-10] MEDS: ACETAMINOPHEN 325 MG TABLET 650 MG PO (08:32)
[2019-08-10] MEDS: SODIUM CHLORIDE 0.9% FLUSH 10 ML IV (08:33)
[2019-08-10 08:39] LABS: Hemoglobin 10.7 g/dL (13.5-17.5)
[2019-08-10] MEDS: DOCUSATE 100 MG CAPSULE PO (10:13)
[2019-08-10] MEDS: POLYETHYLENE GLYCOL 3350 17 GM POWD.PACK PO (10:13)
--- NOTE | 2019-08-10 10:52 | PM.PNPO.1 ---
Subjective Subjective Date Patient Seen: 08/10/19 Time Patient Seen: 10:52 Interval history: POD# 3 s/p RTKA with Dr. Seymour. Patient complains of moderate to severe pain with mobilization. Pain is controlled with oxycodone, tylenol, ibuprofen. He is voiding and eating without difficulty or assistance. Mobilizing slowly with PT, PT recommends SNF discharge. Patient denies fever, chills, hemoptysis, shortness of breath, chest pain. Exam Vital Signs (past 8 hours): - 08/10/19 03:00 08/10/19 08:00 Temperature 98.6 F 98.5 F Pulse Rate 86 81 Respiratory Rate 16 18 Blood Pressure 127/64 119/65 Pulse Oximetry 91 94 Oxygen Delivery Method Room Air Oxygen Flow Rate 0 Narrative Exam Narrative: 69 year old male is sitting comfortably in chair, in no apparent distress. A&Ox3. Dressing CDI. Sensory function grossly intact to light touch in LE b/l. Capillary refill <2sec LE bl. Calves warm, soft, compressible, nttp. Able to actively dorsiflex/plantar flex bl. Objective Labs Result Diagrams: 08/10/19 08:30 Labs: Laboratory Results - last 24 hr 08/09/19 08/10/19 10:00 08:30 Hgb 10.5 L 10.7 L Hct 29.9 L 31.0 L Assessment & Plan Post-op Postoperative Procedures: Procedures Operation Date: 08/07/19 13:45 Actual Procedures Side Surgeon p Total Knee Arthroplasty Right Lloyd Seymour MD Postoperative plan narrative: Patient is mobilizing slowly with PT secondary to pain, PT recommends SNF discharge Continue pain control H/H this AM trending up, no more episodes of hemoptysis. Will not repeat H/H or reconsult hospitalist. Most likely discharge to SNF today Time Spent With Patient Time with patient: less than 15 minutes Quality VTE Deep Vein Thrombosis/Pulmonary Embolism Present on Admission: No
--- NOTE | 2019-08-10 11:02 | CM.DPC ---
Addendum entered by BRITNEY Hartman 08/10/19 15:36: ADD: Per Ortho PA and PT, pt mobilized well and recommendation is for home with HH vs outpt PT. Per Ortho PA, pt states his spouse would likely not want an agency in their home and they are already set up with outpt PT. SW met bedside and explained HH services and at this time they would prefer outpt PT and are aware now how to access HH if needed after d/c. Return call from [facility] admissions stating they are not contracted with pt's [employer] plan and that they could not get auth over the weekend from [employer] anyways. SW updated on pt d/c home today. Plan: Patient to d/c home via spouse POV and outpt PT set up. No SW needs at this time. BRITNEY Hartman Original Note: DCP SNF vs HH Per Ortho PA, still undetermined if pt will need SNF or HH at d/c and SW updated PA that pt has [employer] MCR and will require SNF auth prior to d/c to SNF and likely closed on the weekend but that SW would be willing to begin the process of SNF in order to try to have in place if needed. SW met bedside with pt and explained role and pt states he is still hopeful that he can d/c home with spouse (who recently fell and has limited assist ability) and HH to [place] but realizes that he needs to be able to tolerate a couple stairs prior to home as he has a few to enter but states the house is all one story and so once he gets inside he can stay for a while. SW discussed backup plan of SNF in case pt doesn't progress enough for home and the need for insurance auth and pt reviewed SNF Choice List and states [facility] is his preference as they are the closest to their home in [place] and is agreeable with SW making referral as backup plan and pt has no HH preference. SW called [facility] and left ms for admissions updating that pt has [employer] to confirm they are still contracted and to determine if they can get auth over the weekend. SW faxed clinicals to review and requested call back. SW made referral to [facility] per Vendor Calendar in case pt is safe for d/c home at discharge. Plan: SW to follow closely for CSV review and call back regarding [employer] Medicare vs [facility] review if pt safe for home. BRITNEY Hartman
--- NOTE | 2019-08-10 11:06 | PT.IPTN ---
Current Diagnoses Unilateral primary osteoarthritis, right knee (08/07/19) Surgery Performed Operation Date: 08/07/19 13:45 Actual Procedures p Total Knee Arthroplasty(Right) - Lloyd Seymour MD Physical Therapy Treatment Note M2 PT-IP Current Condition Start: 08/08/19 08:56 Freq: NEEDED Status: Active Protocol: Document 08/08/19 13:01 AW (Rec: 08/08/19 13:26 AW [id number]) Physical Therapy Current Condition Current Condition Evaluation Date 08/08/19 Treatment Diagnosis s/p R TKA, impaired mobility Onset Date 08/07/19 Weight Bearing Status Weight Bearing Status Weight Bear as Tolerated M3 PT-IP Subjective Start: 08/08/19 08:56 Freq: NEEDED Status: Active Protocol: Document 08/10/19 11:06 AB (Rec: 08/10/19 12:20 AB [id number]) Subjective Physical Therapy Visit Type Type Treatment Note Visit Start Time 11:06 Visit Stop Time 11:29 Total Visit Minutes 23 Number of FRONT OFFICE MEDICAL ASSISTANT Visits 0 Physical Therapy Visit Comments Patient Comments pt stated that he is feeling better today Therapy Pain Assessment Pain When Pain Assessed At Rest Pain Present Pain Present Pain Reported Location Right Knee Intensity 2 Scale Used Numeric (1 - 10) Pain Management Techniques Modification of Treatment,Re- positioning,Timing of Activity with Medications M4 PT-IP Mobility and Gait Start: 08/08/19 08:56 Freq: NEEDED Status: Active Protocol: Document 08/10/19 11:06 AB (Rec: 08/10/19 12:20 AB [id number]) PT-Transfer Assessment Sit to and From Stand Sit to and from Stand Standby Assistance,1 Person Assistance,Use of Upper Extremities Equipment Transfer Assistive Device Gait Belt,Front Wheeled Walker Orthotic/Prosthetic Devices or Brace: No Gait Assessment Gait Gait Assistance Required: Standby Assistance,Contact Guard Assist Distance (Feet) 50 Able to Maintain Weight Bearing Status Yes During Gait Assistive Devices Assistive Device Gait Belt,Front Wheeled Walker Orthotic/Prosthetic Devices or Brace: No Gait Deviations General Gait Pattern Antalgic,Decreased Stride Length,Decreased Feet Clearance Factors Limiting Gait Function Factors Limiting Gait Function Decreased Activity Tolerance, Decreased Strength,Limited Range of Motion,Pain,Poor Balance,Respiratory Distress Comments Gait Comments pt sitting on chair and agreeable to do PT. completed sit to stand SBA and ambulated using FWW ~ 50 ft SBA to CGA. went back to the room and pt rested in sitting. pt continues to present with antalgic gait but is able to elevate LE up better compared to yesterdays. pt ambulated with shoes on. pt completed up/down step stool using FWW and required CGA. agreed to do stairs and pt completed using bilateral rails CGA. pt ambulated back to the chair . call light and table positioned. pt stated that he thinks he is ready to go home . also stated that his neighbor can help him with stairs. Stair Climbing Assessment Evaluation Level of Assist On Stairs Contact Guard Assistance Devices Stair Climbing Assistive Devices Straight Cane,Left Railing, Right Railing Technique/Endurance Stair Climbing Direction Ascend and Descend Stair Climbing Technique Step to Step Number of Steps Climbed 3 Stair Climbing Set # Repetitions (reps) 2 Comments Stair Climbing Comments completed up/down steps using bilateral rails CGA. completed last stair descending with use of hurrycane on RUE and completed with CGA. M5 PT-IP Objective Assessments Start: 08/08/19 08:56 Freq: NEEDED Status: Active Protocol: Document 08/08/19 13:01 AW (Rec: 08/08/19 13:26 AW [id number]) Orientation Orientation/Cognition Level of Alertness Lethargic Orientation Name,Month,Place,Situation Language Function Ability No Deficits Noted Safety Awareness Decreased Safety Awareness Memory Description No Deficits Noted Gross Range of Motion Upper Extremity ROM Assessment Within Functional Limits Lower Extremity ROM Assessment Right Impaired Strength Upper Extremity Strength Assessment Within Functional Limits Lower Extremity Strength Assessment Right Impaired Comments Strength Comments LLE strength grossly 4+/5 except for hip flexion 4-/5 Coordination Assessment Gross Coordination Gross Coordination WNL Sensation Assessment Sensation Gross Sensation Left UE Impaired,Right LE Impaired,Left LE Impaired Comments Sensation Comments Pt with peripheral neuropathy affecting bilateral feet and right arm with reported tingling/numbness M6 PT-IP Treatment Start: 08/08/19 08:56 Freq: NEEDED Status: Active Protocol: Document 08/10/19 11:06 AB (Rec: 08/10/19 12:20 AB [id number]) Physical Therapy Treatment Education Education Provided Safety M7 PT-IP Assessment and Plan Start: 08/08/19 08:56 Freq: NEEDED Status: Active Protocol: Document 08/10/19 11:06 AB (Rec: 08/10/19 12:20 AB [id number]) PT Summary Assessment and Plan Potential Rehabilitation Potential Good Summary Impairments Pain,ROM,Strength,Balance,Bed Mobility,Transfers,Gait, Activity Tolerance Progress Towards Goals Progressing Toward Goals Assessment Summary pt progressing with mobility and requires CGA. able to complete stairs using bilateral rails CGA. pt stated that his neighbor can also assist him with stair climbing. pt plans to go home and spouse to assist him. pt may go home when medically stable. Goals Bed Mobility Goal Standby Assistance Transfer Goal Standby Assistance,Front Wheeled Walker Gait Goal Standby Assistance,Front Wheel Walker Gait Distance 100 Other Goals up/down 8 stairs with bilateral rails CGA Days to Meet Goals 10 Frequency of Treatment Frequency Of Treatment Twice a Day Treatment Plan Physical Therapy Treatment Plan Bed Mobility Training,Transfer Training,Gait Training, Therapeutic Exercise,Balance Retraining,Post Op Education, Discharge Planning,Hot or Cold Pack,Neuromuscular Re-ed, Coordination Retraining,Manual Therapy Other Recommendations and Next Treatment gait training, stair training Focus as shavon Recommendations To Nursing Amount of Assist Needed 1 Person Assist Discharge Recommendations PT Discharge Recommendations Home with Assistance,Home Health,Outpatient PT
[2019-08-10 12:00] VITALS: BP 127/68; PULSE 77; RESP 19; TEMP 37.1; O2SAT 95
--- NOTE | 2019-08-10 12:47 | PC.NURSE ---
Day shift: Pt left unit at approx 1240 to private car. Taken in WC by ZACKARY Uriarte. Medicated for rt knee pain and the car ride to [place]. Paperwork signed and all questions answered. Pt [facility] so had MD scrips already. Had left knee surgery in March. Pt has all personal belongings.
== END 2019-08-10 12:49 | disposition home or self-care (01) | DRG 470 ==
PROVIDERS: Internal Medicine; Physician Assistant; Physician Assistant Medical; Admitting Provider Orthopaedic Surgery; PCP Physician Assistant; Visit Provider Orthopaedic Surgery
PROC: 0SRC0JZ Replacement of Right Knee Joint with Synthetic Substitute, Open Approach (ICD-10-PCS; CPT 27447; principal; 2019-08-07 13:45)
DX: M17.11 Unilateral primary osteoarthritis, right knee (principal); Z68.41 Body mass index [BMI] 40.0-44.9, adult; R04.2 Hemoptysis; Z96.652 Presence of left artificial knee joint; E11.42 Type 2 diabetes mellitus with diabetic polyneuropathy; Z79.84 Long term (current) use of oral hypoglycemic drugs; R39.11 Hesitancy of micturition; N40.1 Benign prostatic hyperplasia with lower urinary tract symptoms; Z85.46 Personal history of malignant neoplasm of prostate; M24.561 Contracture, right knee; M25.761 Osteophyte, right knee; K21.9 Gastro-esophageal reflux disease without esophagitis; E78.5 Hyperlipidemia, unspecified; E66.9 Obesity, unspecified
CPT/HCPCS: 36415; 71046; 73560; 82962; 85014; 85018; 85025; 90471; 90656; 97116; 97162; 97530; C1776; C9290; J0690; J1100; J1170; J2250; J2405; J2704; J3010; Q2038